=== PATIENT | male | born 1955 | race Caucasian/White ===

== ENCOUNTER → 2019-12-30 08:51 | Outpatient (CLI) | payer OTHER, SELFPAY ==
--- NOTE | ~2019-12-30 | XR_ITS ---
EXAMINATION: CT abdomen pelvis wo/w con, XR abdomen/kub 1V DATE: 12/30/2019 09:45 INDICATION: Gross hematuria TECHNIQUE: 1. Computed tomography (CT) of the abdomen and pelvis was performed without intravenous contrast. CT of the abdomen and pelvis was then performed with a total of 130 mL Omnipaque-350 intravenous contras t using a double-bolus technique for simultaneous opacification of the renal parenchyma and renal col lecting system. The dose-length product was 2255.56 mGy-cm. 2. AP view of the abdomen and pelvis was obtained on 2 radiographs. COMPARISON: None FINDINGS: CT UROGRAM: Mild discoid atelectasis at the lingula and right lower lobe. Heart size is normal. Small amount of g as in the nondependent right ventricle likely related to peripheral IV placement. No pericardial or p leural effusion. Liver, gallbladder, spleen, pancreas and bilateral adrenal glands are normal. Partia lly obstructing 7 x 4 x 3 mm stone at the right ureteropelvic junction with mild right hydronephrosis but with contrast passing beyond the stone with opacification of the more distal ureter. No other ur olithiasis. Bilateral low-attenuation nonenhancing renal cysts the largest on the right measuring 2.4 cm. No urothelial irregularities identified at the bilateral renal collecting systems or along the u reters. Bowels including the appendix are normal. Prostatomegaly. Bladder is normal. No free intraper itoneal gas or fluid. No pathologically enlarged abdominal or pelvic lymphadenopathy. Chronic appeari ng mild anterior wedging at T10-T12. Moderate thoracic and severe lumbar spondylosis. ABDOMEN RADIOGRAPH(S): The stone at the right ureteropelvic junction is clearly visible on the plain radiographs. No other u rolithiasis. Normal bowel gas pattern. IMPRESSION: 1. Partially obstructing 7 x 4 x 3 mm stone at the right ureteropelvic junction with mild right hydro nephrosis but with excreted contrast extending into the more distal right ureter and without delayed nephrogram. 2. Prostatomegaly. Reviewed, dictated and finalized at location B. IMPRESSION: 1. Partially obstructing 7 x 4 x 3 mm stone at the right ureteropelvic junction with mild right hydronephrosis but with excreted contrast extending into the m ore distal right ureter and without delayed nephrogram. 2. Prostatomegaly.
[2019-12-30 09:24] LABS: Estimated Glomerular Filt Rate > 60
== END ==
PROVIDERS: PCP Internal Medicine; Visit Provider Nurse Practitioner Adult Health
DX: R31.0 Gross hematuria (principal); N40.0 Benign prostatic hyperplasia without lower urinary tract symptoms; N20.1 Calculus of ureter
CPT/HCPCS: 74018; 74178; Q9967

== ENCOUNTER 2020-01-04 15:49 | Outpatient (CLI) | payer OTHER, SELFPAY ==
--- NOTE | 2020-01-04 16:11 | ECG_ITS ---
Measurements Intervals [place] Rate: 96 P: 45 [place]: 184 QRS: -21 QRSD: 122 T: 50 QT: 365 QTc: 462 Interpretive Statements SINUS RHYTHM INTRAVENTRICULAR CONDUCTION DELAY DELAYED PRECORDIAL R/S TRANSITION BORDERLINE ECG Electronically Signed On 01-04-2020 16:52:34 SIMULATION ANALYST by Artie Sharma D.O.
[2020-01-04 17:11] LABS: Prothrombin Time 13.7 Seconds (11.1-14.7)
[2020-01-04 17:12] LABS: Partial Thromboplastin Time 31.4 SECONDS (22.3-36.8)
== END 2020-01-04 15:50 | disposition home or self-care (01) ==
LOC: ANHLAB 15:51
PROVIDERS: PCP Internal Medicine; Visit Provider Urology
DX: R31.9 Hematuria, unspecified (principal); I10 Essential (primary) hypertension; Z01.818 Encounter for other preprocedural examination; I45.9 Conduction disorder, unspecified
CPT/HCPCS: 36415; 85610; 85730; 87086; 93005

== ENCOUNTER 2020-01-06 01:22 | Outpatient (CLI) | payer OTHER, SELFPAY ==
[2020-01-07 03:00] LABS: SARS-CoV-2 RNA PCR Negative
== END 2020-01-06 01:23 | disposition home or self-care (01) ==
LOC: ANHCOVIDDT 01:22
PROVIDERS: PCP Internal Medicine; Visit Provider Urology
DX: Z01.812 Encounter for preprocedural laboratory examination (principal); Z20.828 Contact with and (suspected) exposure to other viral communicable diseases
CPT/HCPCS: 87635; C9803; U0003

== ENCOUNTER 2020-01-08 01:52 | Day surgery (SDC) | payer OTHER, SELFPAY ==
[2020-01-04 14:56] VITALS: BMI 34.4
--- NOTE | 2020-01-07 12:41 | WPDANESEPPF ---
Anes - Initial Pre Proc Eval Procedure: Operation Date: 01/08/20 11:30 Proposed Procedures p Cystoscopy, Right Ureteral Extracorporeal Shock Wave Lithotripsy - Giovanny Pitts MD Date/Time: 01/07/20 12:41 Surgeon: Giovanny Pitts MD Pre Op Diagnosis: Gross Hematuria Patient Data Age: 64 Gender: M Height: 1.78 m Weight: 108.86 kg Allergies Allergy/AdvReac Type Severity Reaction Status Date / Time No Known Allergies Allergy Verified 01/04/20 14:57 Home Medications Medication Instructions Recorded Confirmed Type aripiprazole 5 mg tablet 5 mg PO DAILY 02/19/19 01/04/20 History donepezil 10 mg tablet 10 mg PO DAILY tablet 02/19/19 01/04/20 History multivitamin 1 tablet PO DAILY 02/19/19 01/04/20 History pregabalin 150 mg capsule 150 mg PO BID 02/19/19 01/04/20 History rosuvastatin 20 mg tablet 20 mg PO DAILY 02/19/19 01/04/20 History bupropion HCl 150 mg tablet,12 hr 150 mg PO BID tablet 09/11/19 01/04/20 History sustained-release amiloride 5 mg-hydrochlorothiazide 1 tablet PO DAILY #90 tablet 09/17/19 01/04/20 Rx 50 mg tablet tamsulosin 0.4 mg capsule 0.4 mg PO DAILY #90 cap 09/17/19 01/04/20 Rx enalapril maleate 20 mg tablet 20 mg PO DAILY #90 tablet 11/05/19 01/04/20 Rx sildenafil 25 mg tablet 25 mg PO DAILY PRN #30 tablet 12/28/19 01/04/20 Rx levothyroxine 25 mcg PO DAILY 01/04/20 01/04/20 History metformin 850 mg PO DAILY 01/04/20 01/04/20 History omeprazole 20 mg PO DAILY 01/04/20 01/04/20 History Patient hx anesthesia problems: none Family hx anesthesia problems: none PMFSH Past Medical History Medical History (Updated 01/07/20 @ 12:42 by Sal Pham MD) Arthritis Benign prostatic hyperplasia with nocturia Blood in the urine BPH (benign prostatic hyperplasia) Dementia, unspecified, without behavioral disturbance Dyslipidemia Erectile dysfunction Essential hypertension GERD without esophagitis Hypothyroidism (acquired) Neuropathy Obesity SHAYLA (obstructive sleep apnea) Recurrent major depressive disorder in partial remission Sleep apnea in adult Type 2 diabetes mellitus with diabetic polyneuropathy, without long-term current use of insulin Social History Social History (System 08/04/19 @ 12:59 by Sweta Madrid) Smoking packs per day: 2 Smoking cigarettes per day: 40.0 Years smoked: 20 Smoking pack-years: 40.00 Smoking status: Former smoker Tobacco type: cigarettes and e-cigarettes/vaping Additional smoking assessment comments: QUIT CIGARETTES- 5 YEARS AGO. CURRENT VAPOR CIGARETTE X5 YEARS Alcohol intake: never Spiritual care concerns: No Anes - Eval Final PreProcedure Day of Procedure 01/07/20 12:41 Patient weight: obese Heart: regular rate and rhythm Lungs: clear to auscultation and normal air movement Airway: Mallampati scale class II Neurological: alert and oriented Last oral intake: >/= 8 hours ASA classification: III Emergent: no Anesthetic plan: proceed Anesthesia type and monitoring: general LMA and ETT Informed Consent: The patient's anesthetic plan and its attendant risks and benefits were discussed with the patient/family/POA. Questions were solicited and answers provided to the satisfaction of the patient/family/POA.
[2020-01-08] VITALS (7 sets, daily range): BP systolic 112–131; BP diastolic 63–81; PULSE 64–81; RESP 13–20; TEMP 36–36.4; O2SAT 95–100
--- NOTE | ~2020-01-08 | XR_ITS ---
EXAMINATION: XR abdomen/kub 1V DATE: 01/08/2020 09:45 INDICATION: Lithotripsy TECHNIQUE: A supine view of the abdomen on 2 radiographs was obtained. COMPARISON: None. FINDINGS: No interval change in position of the previously noted 7 x 4 mm stone at the right ureteropelvic junc tion which continues to project lateral to the tip of the right L3 transverse process. No other evide nt urolithiasis. No dilated loops of bowel. Severe thoracolumbar spondylosis. IMPRESSION: 1. Unchanged 7 x 4 mm stone at the right ureteropelvic junction. Reviewed, dictated and finalized at location A. [employer]SPORTATION PLANNING
--- NOTE | 2020-01-08 06:32 | WPDHPUPDATE1 ---
History and Physical Update Update Date/Time: 01/08/20 06:32 History and Physical has been reviewed, including an updated exam of the patient. There are NO changes in the patient's condition. Risks, benefits, and alternatives have been discussed and questions answered. Patient agrees to proceed with procedure.
[2020-01-08] MEDS: LACTATED RINGERS 1,000 ML 30 ML IV CONT (10:10)
[2020-01-08 10:37] LABS: Anion Gap 10 mmol/L (8-16); Blood Urea Nitrogen 17 mg/dL (9-20); Calcium 9.1 mg/dL (8.4-10.2); Carbon Dioxide 27 mmol/L (22-30); Chloride 103 mmol/L (98-107); Estimated CRCL calculation 71 ml/min; Estimated Glomerular Filt Rate > 60; Glucose 98 mg/dL (75-110); Potassium 3.7 mmol/L (3.4-5.0); Sodium 140 mmol/L (137-145)
[2020-01-08] MEDS: ceFAZolin 2 GM/D5W 50 ML 2 GM/50 ML BAG IVPB (11:29)
--- NOTE | 2020-01-08 11:43 | PM.PROC ---
Procedure Note - Detailed Date of procedure: 01/08/20 Pre-op diagnosis: Gross Hematuria Post-op diagnosis: same Procedure performed: Cystoscopy, right ESWL Description of procedure: The patient was brought to the operative suite where he was placed in the supine position on the Dornier lithotripter table. Flexible cystoscopy was undertaken with a 16F flexible cystoscopy. There were no urethral strictures. The prostatic uretehral estimated lenght was 1.5cm. There was mild obstruction of the prostatic urethra with no median lobe enlargement. The bladder mucosa was normal and there was a single, orthotopic ureteral orifice bilaterally. The patient was then repositioned in the supine position with the focal point of the lithotriptor on a 6-7mm left UPJ calculus. A total of 2500 shocks were delivered at a power setting of 4. There appeared to be good fragmentation of the stone. The patient tolerated the procedure well and was taken to the recovery room in good condition. Anesthesia: GLMA Surgeon: Giovanny Pitts MD Estimated blood loss (mL): 0 Drains: No Packing: No Pathology: none sent Complications: No immediate complications Condition: stable Disposition: PACU
== END 2020-01-08 13:30 | disposition home or self-care (01) ==
PROVIDERS: Anesthesiology; PCP Internal Medicine; Visit Provider Urology
PROC: (CPT 50590; principal; 2020-01-08 11:30)
DX: R31.0 Gross hematuria (principal); N20.1 Calculus of ureter; I10 Essential (primary) hypertension; E11.42 Type 2 diabetes mellitus with diabetic polyneuropathy; G47.33 Obstructive sleep apnea (adult) (pediatric); F33.41 Major depressive disorder, recurrent, in partial remission; N40.1 Benign prostatic hyperplasia with lower urinary tract symptoms; R35.1 Nocturia; E78.5 Hyperlipidemia, unspecified; K21.9 Gastro-esophageal reflux disease without esophagitis; F03.90 Unspecified dementia, unspecified severity, without behavioral disturbance, psychotic disturbance, mood disturbance, and anxiety; E03.9 Hypothyroidism, unspecified; E66.9 Obesity, unspecified; Z68.34 Body mass index [BMI] 34.0-34.9, adult; F17.290 Nicotine dependence, other tobacco product, uncomplicated
CPT/HCPCS: 50590; 36415; 74018; 80048; A9270; J0690; J3010; J7030; J7120

== ENCOUNTER → 2020-01-18 13:09 | Outpatient (CLI) | payer OTHER, SELFPAY ==
--- NOTE | ~2020-01-18 | XR_ITS ---
EXAMINATION: XR abdomen/kub 1V DATE: 01/18/2020 13:38 INDICATION: Gross hematuria TECHNIQUE: A supine view of the abdomen on 2 radiographs was obtained. COMPARISON: 01/08/2020 FINDINGS: The stone previously seen in the proximal right ureter is no longer visualized. No other stone/stone fragments identified in the abdomen or pelvis. Normal bowel gas pattern. Bone island at the right fem oral neck. Severe lumbar spondylosis. IMPRESSION: 1. No evident urolithiasis. Reviewed, dictated and finalized at location H. WORDPRESS DEVELOPER IMPRESSION: 1. No evident urolithiasis.
== END ==
PROVIDERS: Visit Provider Nurse Practitioner Adult Health
DX: R31.0 Gross hematuria (principal)
CPT/HCPCS: 74018

== ENCOUNTER 2020-03-01 11:52 | Inpatient (IN) | payer OTHER, SELFPAY ==
[2020-03-01] VITALS (33 sets, daily range): BP systolic 98–145; BP diastolic 64–102; PULSE 91–152; RESP 0–33; TEMP 37.2–37.9; O2SAT 94–99; BMI 34.3
--- NOTE | ~2020-03-01 | US_ITS ---
EXAMINATION: US right upper quadrant DATE: 03/02/2020 08:00 INDICATION: Cholecystitis with right upper quadrant pain. TECHNIQUE: Multiple grayscale and Doppler ultrasound images of the abdomen were obtained. COMPARISON: None FINDINGS: Pancreas appears unremarkable but is suboptimally visualized. Liver has normal echogenicity and conto ur, with a smooth surface. No liver lesion identified. No intrahepatic biliary duct dilation suspecte d. Portal venous flow was seen in the hepatopetal, normal direction and has normal Doppler waveform. The gallbladder is dilated to 5.1 cm with mild diffuse wall thickening measuring up to 3 millimeter. No evident cholelithiasis. The common bile duct is at the upper limits of normal measuring 6 mm in ma ximal diameter. Sonographic Kelly sign was reported as positive by the rig supervisor. IMPRESSION: 1. Dilated gallbladder without evident cholelithiasis but with mild wall thickening and positive sono graphic Kelly's sign which along with the presence of pericholecystic inflammatory setting of prior CT is consistent with acute potentially acalculous cholecystitis. Reviewed, dictated and finalized at location A. AL HYGIENIST IMPRESSION: 1. Dilated gallbladder without evident cholelithiasis but with mild wall thicke tammi and positive sonographic Kelly's sign which along with the presence of pe richolecystic inflammatory setting of prior CT is consistent with acute potenti ally acalculous cholecystitis.
--- NOTE | ~2020-03-01 | XR_ITS ---
XR chest 1V portable DATE: 03/01/2020 12:54 INDICATION: Fever. Abdominal discomfort. TECHNIQUE: Portable AP chest on 03/01/2020 at 1254 hours COMPARISON: 09/16/2017 CT lung screening examinations FINDINGS: Normal heart size. Aortic tortuosity. No hilar or mediastinal enlargement. No pulmonary infiltrate or consolidation, pleural effusion or pulmonary mass or congestion or pneumot horax. IMPRESSION: No active cardiopulmonary disease Reviewed, dictated and finalized at location A. ENT'S LIBRARIAN
--- NOTE | ~2020-03-01 | NM_ITS ---
EXAMINATION: NM hepatobiliary w pharm DATE: 03/02/2020 16:20 INDICATION: Abdominal pain, possible cholecystitis COMPARISON: None. TECHNIQUE: 4.9 mCi Tc-99m mebrofenin (Choletec) was administered intravenously. Scintigraphic images of the abdomen were obtained for one hour. At the 1 hour time point, 2 mg of morphine were administer ed and imaging was continued for 30 minutes. FINDINGS: There is normal clearance of radiotracer from the blood pool. There is homogeneous tracer u ptake by the liver. Activity progresses to the bowel. No gallbladder activity is detected after one hour or after morphine administration. IMPRESSION: 1. Findings consistent with acute cholecystitis. Reviewed, dictated and finalized at location A. T PRESS OPERATOR
--- NOTE | ~2020-03-01 | CT_ITS ---
EXAMINATION: CT abdomen pelvis w con EXAM DATE: 03/01/2020 13:24 INDICATION: Upper abdominal pain for several days. TECHNIQUE: Spiral CT of the abdomen and pelvis was performed following intravenous injection of 100 m L Omnipaque 350. Axial, coronal and sagittal images were reviewed. The dose-length product (DLP) fo r this examination was 1124.14 mGy-cm. The exposure was tailored according to patient size (auto mA exposure control), and iterative reconstruction (ASIR) was used as additional dose reduction techniqu e. Comparison is made to prior examination from 12/30/2019. FINDINGS: Gallbladder is moderately distended and there is adjacent fat stranding. Appearance is susp icious for acute cholecystitis. No common bile duct dilation or calcified cholelithiasis. The liver, spleen, adrenal glands and pancreas are unremarkable. Portal and splenic veins are patent. Kidneys enhance symmetrically. There is no hydronephrosis. There is punctate right mid calyceal stone. No u reteral stones. There is moderate prostatomegaly. The bladder is unremarkable. There is no retroper itoneal or pelvic lymphadenopathy. There is mild scattered arteriosclerotic disease. The appendix is normal. There is large duodenal diverticulum. There is expected amount of colonic s tool. No free intraperitoneal gas. The heart is normal in size. There are no pericardial or pleu ral effusions. The lung bases are unremarkable. There are no osteoblastic or osteolytic lesions bill ntified. IMPRESSION: Probable acute cholecystitis. Other chronic findings. Reviewed, dictated and finalized at location B. TS STATISTICIAN
--- NOTE | ~2020-03-01 | XR_ITS ---
EXAMINATION: XR cholangiogram surg 1st inj DATE: 03/03/2020 10:15 INDICATION: Intraoperative evaluation during laparoscopic cholecystectomy TECHNIQUE: Multiple fluoroscopic images of the right upper quadrant were obtained during intraoperati ve cholangiography. A total of 121 fluoroscopic images were obtained. The amount of fluoroscopy time used during this procedure was 0.4 minutes. COMPARISON: None. FINDINGS: Cannulation of the cystic duct demonstrates filling of a normal appearing common bile duct which tapers smoothly distally with no intraluminal filling defects or stricture. Contrast extends i nto the duodenum and central intrahepatic biliary tree which also appears normal. IMPRESSION: 1. No filling defects or strictures within the common bile duct or contrast opacified central biliary tree. Reviewed, dictated and finalized at location A. TARY SCIENCE TEACHER IMPRESSION: 1. No filling defects or strictures within the common bile duct or contrast opa cified central biliary tree.
--- NOTE | 2020-03-01 12:27 | ED.ABDPAIN ---
HPI - Abdominal Pain General Chief Complaint: Abdominal Pain Stated Complaint: abd pain, constipation Time Seen by Provider: 03/01/20 12:19 Source: patient Mode of arrival: ambulatory Limitations: no limitations History of Present Illness HPI narrative: 64 years old white male presents with diffuse abdominal pain mainly upper part started yesterday. Constant, sharp, no radiation, denies any nausea, vomiting, diarrhea or constipation. Patient is running fever. Patient denies any coughing, sneezing, sore throat, headache, respiratory symptoms or exposure to anybody known to have COVID-19. Patient denies any history of abdominal surgery. Patient on aspirin once a day. History of diabetes, hypertension, hyperlipidemia, hypothyroidism Related Data Home Medications Medication Instructions Recorded Confirmed aripiprazole 5 mg tablet 5 mg PO DAILY 02/19/19 02/02/20 donepezil 10 mg tablet 10 mg PO DAILY tablet 02/19/19 02/02/20 multivitamin 1 tablet PO DAILY 02/19/19 02/02/20 bupropion HCl 150 mg tablet,12 hr 150 mg PO BID tablet 09/11/19 02/02/20 sustained-release levothyroxine 25 mcg PO DAILY 01/04/20 02/02/20 metformin 850 mg PO DAILY 01/04/20 02/02/20 omeprazole 20 mg PO DAILY 01/04/20 02/02/20 venlafaxine [Effexor XR] 150 mg PO DAILY 03/01/20 Allergies Allergy/AdvReac Type Severity Reaction Status Date / Time No Known Allergies Allergy Verified 01/04/20 14:57 Review of Systems Review of Systems: Narrative: CONSTITUTIONAL: Denies fever, chills, or sweats. EYES: Denies visual changes, redness, or discharge. ENT: Denies rhinorrhea, congestion, sore throat, or otalgia. CARDIOVASCULAR: Denies chest pain, palpitations, or edema. RESPIRATORY: Denies cough or dyspnea. GASTROINTESTINAL: Abdominal pain for the last 24 hours GENITOURINARY: Denies dysuria or hematuria. SKIN: Denies rash or itching. MUSCULOSKELETAL: Denies back pain, joint pain, or myalgia. NEUROLOGIC: Denies headache, numbness, or weakness. PSYCHIATRIC: Denies anxiety or depression. [facility] Past Medical History Medical History (Updated 03/01/20 @ 17:38 by Sherly Mclaughlin MD) Arthritis Benign prostatic hyperplasia with nocturia Blood in the urine BPH (benign prostatic hyperplasia) Dementia, unspecified, without behavioral disturbance Dyslipidemia Erectile dysfunction Essential hypertension GERD without esophagitis Hypothyroidism (acquired) Neuropathy Obesity SHAYLA (obstructive sleep apnea) Recurrent major depressive disorder in partial remission Sleep apnea in adult Type 2 diabetes mellitus with diabetic polyneuropathy, without long-term current use of insulin Surgical History Surgical History History of cystoscopy 01/08/20 cystoscopy with right ESWL Family History Family History Father Heart disease Gallbladder disease Social History Social History Social History: The patient lives at home with his , Lyly. He reports that his is his durable healthcare power of traffic law attorney. Smoking packs per day: 2 Smoking cigarettes per day: 40.0 Years smoked: 20 Smoking pack-years: 40.00 Smoking status: Former smoker Tobacco type: cigarettes and e-cigarettes/vaping Additional smoking assessment comments: QUIT CIGARETTES- 5 YEARS AGO. CURRENT VAPOR CIGARETTE X5 YEARS Alcohol intake: never Substance use: never Living arrangements: with family Gender identity (if verbalized by the patient): Male Sexual Orientation (if Verbalized by the Patient): Straight or Heterosexual Spiritual care concerns: No Exam Narrative: Exam Narrative: General appearance: Well-developed, well-nourished Skin: Normal color Head: Normocephalic, nontraumatic Eyes: Clear conjunctiva ENT: Oropharynx normal, ears normal, nose normal Neck: Supple, nontender Chest and respiratory: Airway
[2020-03-01] MEDS: SODIUM CHLORIDE 0.9% IV 1,000 ML 999 ML IV CONT ×2 (12:29→14:43)
[2020-03-01 12:31] LABS: Add Urine Microscopic? YES; Appearance Urine Cloudy (Clear); Bacteria Urine Trace /hpf; Bilirubin Urine 1+ (Negative); Blood Urine 1+ (Negative); Color Urine Amber (Yellow); Glucose Urine UA Negative (Negative); Ketones Urine 1+ mg/dL (Negative); Leukocyte Esterase Ur 2+ LEU/UL (Negative); Mucus Urine Heavy /lpf; Nitrate Urine Negative (Negative); Protein Urine 2+ mg/dL (Negative); Squamous Epithelial Cell Urine Rare /hpf (Few); WBC Urine 16-20 /hpf
[2020-03-01] MEDS: ONDANSETRON INJ 4 MG/2 ML VIAL IV PUSH (12:34)
[2020-03-01] MEDS: MORPHINE SULFATE (*CRX) 4 MG/ML INJ IV PUSH (12:35)
[2020-03-01 12:58] LABS: Hematocrit 46.6 % (42.0-52.0); Hemoglobin 15.9 g/dL (14.0-18.0); Mean Corpuscular HGB Conc 34.1 g/dl (32-36); Mean Corpuscular Hemoglobin 29.7 pg (26-34); Mean Corpuscular Volume 87.1 fl (80-100); Mean Platelet Volume 9.8 fl (7.4-10.4); Platelet Count Result 336 k/mm3 (150-375); Red Blood Count 5.35 M/mm3 (4.6-6.20)
[2020-03-01 13:10] LABS: Alanine Aminotransferase 25 U/L (4-50); Albumin Level 4.2 g/dL (3.5-5.1); Alkaline Phosphatase 68 U/L (38-126); Anion Gap 12 mmol/L (8-16); Aspartate Amino Transferase 26 U/L (17-59); Bilirubin,Total 0.9 mg/dL (0.2-1.3); Blood Urea Nitrogen 14 mg/dL (9-20); Carbon Dioxide 24 mmol/L (22-30); Chloride 97 mmol/L (98-107); Estimated CRCL calculation 92 ml/min; Estimated Glomerular Filt Rate > 60; Glucose 161 mg/dL (75-110); Lipase 17 U/L (23-300); Potassium 3.4 mmol/L (3.4-5.0); Sodium 133 mmol/L (137-145)
[2020-03-01 13:17] LABS: Band Neutrophils Percent 1 % (0-6); Lymphocytes Absolute Manual 1.62 K/mm3 (1.1-4.5); Monocytes Absolute Manual 0.72 K/mm3 (0.1-0.90); Monocytes Percent Manual 4 % (3-9); Neutrophils Absolute Manual 15.66 K/mm3 (1.3-6.7); Neutrophils Percent Manual 86 % (46-73); Total Cells Counted 100
[2020-03-01 13:18] LABS: Platelet Estimate Adequate (Adequate)
--- NOTE | 2020-03-01 14:25 | PC.NURSE ---
ERP aware about Pt. hr being tachy. ERP ordered another fluid bolus via verbal order readback. Pt. denies any chest pain or shortness of breath.
--- NOTE | 2020-03-01 14:54 | PM.CNGS ---
Assessment and Plan Assessment and plan (1) Acute cholecystitis: Code(s): K81.0 - Acute cholecystitis Status: Acute Assessment and Plan: CT abd/pelvis showed gallbladder distention with adjacent fat stranding, concerning for acute cholecystitis, but there is no evidence of cholelithiasis. He also presented with associated leukocytosis, fever, and tachycardia. LFTs and lipase are normal. When seen in the ER, he is still having a significant amount of abdominal pain and has not eaten for 2 days. I discussed the patient's case and plan of care with Dr. Galindo. We would recommend starting broad-spectrum IV antibiotics, IV fluids, analgesics, and antiemetics. We will also get a right upper quadrant abdominal ultrasound to further evaluate for gallstones and tentatively plan on proceeding with a laparoscopic cholecystectomy, possible open, by Dr. Galindo tomorrow. The patient is at an increased risk for surgery due to his multiple co-morbidities. I discussed the pathophysiology of gallbladder disease with the patient and the description of the procedure, risks, benefits, indications, and expected outcomes and recovery. All questions were answered. Thank you for allowing us to see the patient in consultation and we will continue to follow along with you. (2) Sepsis: Code(s): A41.9 - Sepsis, unspecified organism Status: Acute Assessment and Plan: Sepsis criteria met with leukocytosis (WBC 18,000), tachycardia, and fever in the presence of known infection. Cholecystitis is likely the source. Urine may another possible source, but seems less likely. Will await the Hospitalist's evaluation regarding his abnormal urinalysis. I ordered a lactic acid and blood cultures. Continue broad-spectrum IV antibiotics and IV fluids. Monitor labs. Management per Hospitalist. (3) Abnormal urinalysis: Code(s): R82.90 - Unspecified abnormal findings in urine Status: Acute Assessment and Plan: Concern for UTI? Less likely source of leukocytosis. Urine culture pending. Continue abx and management per Hospitalist. (4) Type 2 diabetes mellitus with diabetic polyneuropathy, without long-term current use of insulin: Code(s): E11.42 - Type 2 diabetes mellitus with diabetic polyneuropathy Status: Acute Assessment and Plan: Hgb A1C in September was 5.5. Management per Hospitalist. (5) Essential hypertension: Code(s): I10 - Essential (primary) hypertension Status: Acute (6) SHAYLA (obstructive sleep apnea): Code(s): G47.33 - Obstructive sleep apnea (adult) (pediatric) Status: Acute Assessment and Plan: Compliant with CPAP. (7) BPH (benign prostatic hyperplasia): Qualifiers: Lower urinary tract symptom presence: symptoms absent Qualified Code(s): N40.0 - Benign prostatic hyperplasia without lower urinary tract symptoms Code(s): N40.0 - Benign prostatic hyperplasia without lower urinary tract symptoms Status: Acute (8) Dementia, unspecified, without behavioral disturbance: Code(s): F03.90 - Unspecified dementia without behavioral disturbance Status: Acute (9) Hypothyroidism (acquired): Code(s): E03.9 - Hypothyroidism, unspecified Status: Acute (10) Recurrent major depressive disorder in partial remission: Code(s): F33.41 - Major depressive disorder, recurrent, in partial remission Status: Acute (11) Obesity: Code(s): E66.9 - Obesity, unspecified Status: Acute History of Present Illness Consult details Consult date: 03/01/20 Reason for consult: other (Possible acute cholecystitis) Requesting physician: Sherly Mclaughlin MD Narrative: This is a 64-year-old male with a history of type 2 diabetes mellitus, SHAYLA, hypertension, hyperlipidemia, and hypothyroidism, who presented to the emergency department today with complaints of epigastric abdominal pain and fever. The patient reports waking up with abdo
[2020-03-01 17:24] LABS: Lactic Acid Reflex 1.6 mmol/L (0.7-2.1)
[2020-03-01] MEDS: SODIUM CHLORIDE 0.9% IV 1,000 ML 125 ML IV CONT (17:25)
--- NOTE | 2020-03-01 18:04 | PC.NURSE ---
This patient, Cecilio Cool, was admitted to Medical Room 341-01. Patient/family oriented to hospital policies and general routines including ID bracelet, bed and alarms, visiting hours, pain management, procedures, bathroom and other care routines, personal items, smoking policy, room service/diet, and visiting hours. Information on how to activate the Rapid Response Team has been discussed. Patient/Family are encouraged to report perceived risks to care and to ask questions if they do not understand what they are told or what they should do.
--- NOTE | 2020-03-01 18:38 | ECG_ITS ---
Measurements Intervals [place] Rate: 100 P: 53 IA: 176 QRS: 27 QRSD: 118 T: 45 QT: 330 QTc: 427 Interpretive Statements SINUS TACHYCARDIA INTRAVENTRICULAR CONDUCTION DELAY DELAYED PRECORDIAL R/S TRANSITION INFERIOR INFARCT, AGE INDETERMINATE ABNORMAL ECG Electronically Signed On 03-02-2020 14:07:47 CAN CLOSING MACHINE TENDER by Artie Sharma D.O.
--- NOTE | 2020-03-01 19:30 | PM.IMHP ---
H&P: HPI History of Present Illness Date/Time: 03/01/20 19:30 Chief Complaint: Abdominal pain. Narrative: Cecilio Cool is a 64-year-old male with GERD, hypertension, dyslipidemia, hypothyroidism, type 2 diabetes mellitus,Depression, anxiety, and memory loss who presented to the emergency department earlier today with complaints of abdominal pain. He reportedly awoke from sleep with epigastric pain that he has a difficult time describing aside from calling it pain. It does not radiate and he gives no significant aggravating or alleviating factors. Associated symptoms include nausea and decreased appetite. This morning he had chills and a fever of 100.5? and thus he was brought in for evaluation. He was found to have findings suggestive of acute cholecystitis on imaging is being admitted in this setting. He denies prior history of gallbladder disease has no history of cholelithiasis. No vomiting or diarrhea. Denies dysuria. No cold or flu symptoms. Review of Systems Review of Systems: Narrative: Twelve systems were reviewed with pertinent positives and negatives as per HPI. No sinus congestion, rhinorrhea, otalgia, or odynophagia. No cough or shortness of breath. No exposure to those positive for COVID-19. He is on metformin and does check his glucose regularly, assuring me that ?they always look pretty good.? Except as documented, all other systems were reviewed and are negative. [facility] Past Medical History Medical History (Updated 03/01/20 @ 23:53 by Lucy Calderon PA-C) Anxiety Arthritis Benign prostatic hyperplasia with nocturia Dementia, unspecified, without behavioral disturbance Depression Dyslipidemia Erectile dysfunction Essential hypertension GERD without esophagitis History of kidney stones Hypothyroidism Neuropathy Obstructive sleep apnea He does not always use his CPAP. Type 2 diabetes mellitus with diabetic polyneuropathy, without long-term current use of insulin Hemoglobin A1c was 5.5% in September 2019. Surgical History Surgical History (Updated 03/01/20 @ 23:49 by Lucy Calderon PA-C) History of cystoscopy (~01/08/20) Cystoscopy with right ESWL. Family History Family History Father Heart disease Gallbladder disease Social History Social History (Updated 03/01/20 @ 23:50 by Lucy Calderon PA-C) Social History: the patient lives in [place] with his . He smoked 2 packs of cigarettes a day for 40 years and quit about 5 years ago. He now vapes. He denies alcohol and illicit substance abuse. He designates Lyly as his surrogate decision maker and he wishes to be a full code. Smoking packs per day: 2 Smoking cigarettes per day: 40.0 Years smoked: 20 Smoking pack-years: 40.00 Smoking status: Former smoker Tobacco type: cigarettes and e-cigarettes/vaping Additional smoking assessment comments: QUIT CIGARETTES- 5 YEARS AGO. CURRENT VAPOR CIGARETTE X5 YEARS Alcohol intake: former Substance use: never Living arrangements: with family Gender identity (if verbalized by the patient): Male Sexual Orientation (if Verbalized by the Patient): Straight or Heterosexual Spiritual care concerns: No Meds Home Medications and Allergies Home Medications Medication Instructions Recorded Confirmed Type aripiprazole 5 mg tablet 5 mg PO DAILY 02/19/19 03/01/20 History donepezil 10 mg tablet 10 mg PO DAILY tablet 02/19/19 03/01/20 History multivitamin 1 tablet PO DAILY 02/19/19 03/01/20 History bupropion HCl 150 mg tablet,12 hr 300 mg PO DAILY tablet 09/11/19 03/01/20 History sustained-release amiloride 5 mg-hydrochlorothiazide 1 tablet PO DAILY #90 tablet 09/17/19 03/01/20 Rx 50 mg tablet enalapril maleate 20 mg tablet 20 mg PO DAILY #90 tablet 11/05/19 03/01/20 Rx sildenafil 25 mg tablet 25 mg PO DAILY PRN #30 tablet 12/28/19 03/01/20 Rx levothyroxine 25 mcg PO DAILY 01/04/20 03/01/20 History
[2020-03-01] MEDS: SODIUM CHLORIDE 0.9% IV 500 ML 999 ML IV CONT (20:41)
[2020-03-01 21:27] LABS: Glucose Point of Care 109 (65-105)
[2020-03-02] VITALS (7 sets, daily range): BP systolic 111–154; BP diastolic 67–77; PULSE 76–108; RESP 17–20; TEMP 36.4–37.3; O2SAT 94–98
[2020-03-02 00:59] LABS: Alanine Aminotransferase 28 U/L (4-50); Albumin Level 3.3 g/dL (3.5-5.1); Alkaline Phosphatase 55 U/L (38-126); Anion Gap 7 mmol/L (8-16); Aspartate Amino Transferase 32 U/L (17-59); Bilirubin,Total 1.2 mg/dL (0.2-1.3); Blood Urea Nitrogen 15 mg/dL (9-20); Calcium 8.3 mg/dL (8.4-10.2); Carbon Dioxide 26 mmol/L (22-30); Chloride 103 mmol/L (98-107); Estimated CRCL calculation 83 ml/min; Estimated Glomerular Filt Rate > 60; Glucose 121 mg/dL (75-110); Potassium 3.6 mmol/L (3.4-5.0); Sodium 136 mmol/L (137-145)
[2020-03-02] MEDS: MORPHINE SULFATE (*CRX) 4 MG/ML INJ 2 MG IV PUSH ×3 (02:27→15:46)
[2020-03-02] MEDS: SODIUM CHLORIDE 0.9% IV 1,000 ML 125 ML IV CONT ×3 (02:32→21:58)
[2020-03-02 05:56] LABS: Basophils Percent Auto 0.2 % (0.2-1.2); Hematocrit 41.7 % (42.0-52.0); Immature Granulocyte Absolute 0.42 K/mm3 (0.00-0.031); Immature Granulocyte Percent A 2.2 % (0-0.5); Lymphocytes Absolute Auto 0.95 K/mm3 (0.9-3.2); Mean Corpuscular HGB Conc 33.6 g/dl (32-36); Mean Corpuscular Hemoglobin 29.4 pg (26-34); Mean Corpuscular Volume 87.4 fl (80-100); Monocytes Percent Auto 5.5 % (2.6-8.5); Neutrophils Absolute Auto 16.4 K/mm3 (1.3-6.7); Neutrophils Percent Auto 87.1 % (45.5-73.1); Platelet Count Result 300 k/mm3 (150-375); Red Blood Count 4.77 M/mm3 (4.6-6.20); White Blood Count 18.9 K/mm3 (4.5-10.0)
[2020-03-02] MEDS: LEVOTHYROXINE SODIUM 25 MCG TABLET PO (05:59)
[2020-03-02 06:08] LABS: Hemoglobin A1C 5.3 % (<5.7)
[2020-03-02 06:10] LABS: Alanine Aminotransferase 31 U/L (4-50); Albumin Level 3.4 g/dL (3.5-5.1); Alkaline Phosphatase 62 U/L (38-126); Anion Gap 8 mmol/L (8-16); Aspartate Amino Transferase 36 U/L (17-59); Bilirubin,Total 1.1 mg/dL (0.2-1.3); Blood Urea Nitrogen 15 mg/dL (9-20); Calcium 8.5 mg/dL (8.4-10.2); Carbon Dioxide 25 mmol/L (22-30); Chloride 103 mmol/L (98-107); Estimated CRCL calculation 83 ml/min; Estimated Glomerular Filt Rate > 60; Glucose 115 mg/dL (75-110); Magnesium 1.4 mg/dL (1.6-2.3); Potassium 3.5 mmol/L (3.4-5.0); Sodium 136 mmol/L (137-145)
--- NOTE | 2020-03-02 07:33 | ECG_ITS ---
Measurements Intervals [place] Rate: 73 P: 41 OK: 185 QRS: 37 QRSD: 118 T: 34 QT: 373 QTc: 414 Interpretive Statements SINUS RHYTHM INFERIOR INFARCT, AGE INDETERMINATE ATYPICAL ECG Electronically Signed On 03-02-2020 14:18:48 DICE TABLE OPERATOR by Artie Sharma D.O.
--- NOTE | 2020-03-02 07:36 | PC.NURSE ---
Patient to ultrasound via stretcher.
--- NOTE | 2020-03-02 08:00 | PC.NURSE ---
Patient returned from ultrasound via stretcher.
[2020-03-02] MEDS: buPROPion HCL XL (24 HR) 150 MG TABCR 300 MG PO (08:18)
[2020-03-02] MEDS: DONEPEZIL HCL 10 MG TABLET PO (08:18)
[2020-03-02] MEDS: VENLAFAXINE HCL XR 75 MG CAP.ER.24H 150 MG PO (08:18)
[2020-03-02] MEDS: ARIPiprazole 5 MG TABLET PO (08:18)
[2020-03-02] MEDS: MAGNESIUM SULFATE 3GM/D5W100ML 3 GM/100 ML BAG IVPB (08:19)
--- NOTE | 2020-03-02 08:23 | WPDANESEPPF ---
Anes - Initial Pre Proc Eval Procedure: Operation Date: 03/02/20 15:30 Proposed Procedures p Laparoscopic Cholecystectomy,Possible Intraoperative Cholangiograms - Dennis Galindo MD Date/Time: 03/02/20 08:23 Pre Op Diagnosis: Acute cholecystitis Patient Data Age: 64 Gender: M Height: 1.78 m Weight: 108.5 kg Last Vital Signs Temp 36.6 C 03/02/20 05:58 Pulse 94 03/02/20 05:58 Resp 17 03/02/20 05:58 BP 133/77 03/02/20 05:58 Pulse Ox 94 03/02/20 05:58 Allergies Allergy/AdvReac Type Severity Reaction Status Date / Time No Known Allergies Allergy Verified 03/01/20 22:18 Home Medications Medication Instructions Recorded Confirmed Type aripiprazole 5 mg tablet 5 mg PO DAILY 02/19/19 03/01/20 History donepezil 10 mg tablet 10 mg PO DAILY tablet 02/19/19 03/01/20 History multivitamin 1 tablet PO DAILY 02/19/19 03/01/20 History bupropion HCl 150 mg tablet,12 hr 300 mg PO DAILY tablet 09/11/19 03/01/20 History sustained-release amiloride 5 mg-hydrochlorothiazide 1 tablet PO DAILY #90 tablet 09/17/19 03/01/20 Rx 50 mg tablet enalapril maleate 20 mg tablet 20 mg PO DAILY #90 tablet 11/05/19 03/01/20 Rx sildenafil 25 mg tablet 25 mg PO DAILY PRN #30 tablet 12/28/19 03/01/20 Rx levothyroxine 25 mcg PO DAILY 01/04/20 03/01/20 History metformin 850 mg PO DAILY 01/04/20 03/01/20 History omeprazole 20 mg PO DAILY 01/04/20 03/01/20 History aspirin [Adult Aspirin] 81 mg PO DAILY 03/01/20 03/01/20 History venlafaxine [Effexor XR] 150 mg PO DAILY 03/01/20 03/01/20 History Laboratory Tests 03/01/20 03/01/20 03/01/20 12:21 12:49 12:50 WBC 18.0 K/mm3 H K/mm3 (4.5-10.0) RBC 5.35 M/mm3 M/mm3 (4.6-6.20) Hgb 15.9 g/dL g/dL (14.0-18.0) Hct 46.6 % % (42.0-52.0) MCV 87.1 fl fl (80-100) MCH 29.7 pg pg (26-34) MCHC 34.1 g/dl g/dl (32-36) RDW 13.0 % % (11.5-14.5) Plt Count 336 k/mm3 k/mm3 (150-375) MPV 9.8 fl fl (7.4-10.4) Immature Gran % (Auto) Not Reportable Neut % (Auto) Not Reportable Lymph % (Auto) Not Reportable Wells % (Auto) Not Reportable Eos % (Auto) Not Reportable Baso % (Auto) Not Reportable Lymph # (Auto) Not Reportable [place] # (Auto) Not Reportable Eos # (Auto) Not Reportable Baso # (Auto) Not Reportable Abs Immat Gran (auto) Not Reportable Absolute Neuts (auto) Not Reportable Absolute Nucleated RBC Not Reportable Total Counted 100 Neutrophils % (Manual) 86 % H % (46-73) Band Neutrophils % 1 % % (0-6) Lymphocytes % (Manual) 9.0 % L % (18-44) Monocytes % (Manual) 4 % % (3-9) Nucleated RBC % Not Reportable Abs Neuts (Manual) 15.66 K/mm3 H K/mm3 (1.3-6.7) Abs Lymphs (Manual) 1.62 K/mm3 K/mm3 (1.1-4.5) Abs Monocytes (Manual) 0.72 K/mm3 K/mm3 (0.1-0.90) Platelet Estimate Adequate (Adequate) Sodium 133 mmol/L L mmol/L (137-145) Potassium 3.4 mmol/L mmol/L (3.4-5.0) Chloride 97 mmol/L L mmol/L (98-107) Carbon Dioxide 24 mmol/L mmol/L (22-30) Anion Gap 12 mmol/L mmol/L (8-16) BUN 14 mg/dL mg/dL (9-20) Creatinine 0.90 mg/dL mg/dL (0.7-1.3) Estim Creat Clear Calc 92 ml/min ml/min Estimated GFR > 60 (59 - ) Glucose 161 mg/dL H mg/dL (75-110) POC Capillary Glucose Hemoglobin A1c Lactic Acid Calcium 9.0 mg/dL mg/dL (8.4-10.2) Magnesium Total Bilirubin 0.9 mg/dL mg/dL (0.2-1.3) AST 26 U/L U/L (17-59) ALT 25 U/L U/L (4-50) Alkaline Phosphatase 68 U/L U/L (38-126) Total Protein 8.0 g/dL g/dL
[2020-03-02] MEDS: MAGNESIUM SULF 2 GM/WATER 50ML 2 GM/50 ML BAG IVPB (09:28)
--- NOTE | 2020-03-02 09:43 | PM.PNGS ---
Progress Note: A&P Assessment and Plan (1) Acute cholecystitis: Code(s): K81.0 - Acute cholecystitis Status: Acute Assessment and Plan: CT abd/pelvis showed gallbladder distention with adjacent fat stranding, concerning for acute cholecystitis, but there is no evidence of cholelithiasis. He also presented with associated leukocytosis, fever, and tachycardia. LFTs and lipase are normal. Ultrasound RUQ this morning showed dilated gallbladder without evident cholelithiasis but with mild wall thickening and positive sonographic Kelly's sign which along with the presence of pericholecystic inflammatory setting of prior CT is consistent with acute potentially acalculous cholecystitis. WBC up to 18,900 today and he did have a low grade fever this morning. Patient still having a significant amount of abdominal pain. Since there is still no gallstones seen on ultrasound, we will get a STAT HIDA scan today with pharmacology to assess the gallbladder function. If this is acute acalculous cholecystitis, we will likely try to add the patient onto the surgery schedule later today. Plan pending HIDA results. (2) Sepsis: Code(s): A41.9 - Sepsis, unspecified organism Status: Acute Assessment and Plan: Sepsis criteria met with leukocytosis, tachycardia, and fever in the presence of known infection. Cholecystitis is likely the source. Lactic acid normal. Blood cultures pending. Continue broad-spectrum IV antibiotics and IV fluids. (3) Abnormal urinalysis: Code(s): R82.90 - Unspecified abnormal findings in urine Status: Acute Assessment and Plan: [place] to be contaminate. Urine culture pending. IV Zosyn would cover for possible pathogens. Management per Hospitalist. (4) Type 2 diabetes mellitus with diabetic polyneuropathy, without long-term current use of insulin: Code(s): E11.42 - Type 2 diabetes mellitus with diabetic polyneuropathy Status: Acute Assessment and Plan: Management per Hospitalist. (5) Essential hypertension: Code(s): I10 - Essential (primary) hypertension Status: Acute (6) SHAYLA (obstructive sleep apnea): Code(s): G47.33 - Obstructive sleep apnea (adult) (pediatric) Status: Acute (7) Obesity: Code(s): E66.9 - Obesity, unspecified Status: Acute Additional Plan Discussed the patient's plan of care with Dr. Galindo. Subjective Subjective Date/Time Seen: 03/02/20 09:43 Patient reports: still having pain Interval history: Patient reports feeling miserable this morning due to the abdominal pain. Morphine is helping with the pain some per the patient. Still reports epigastric and central upper abdominal pain. No other complaints. Fever of 100.2 F this morning. Review of Systems Review of Systems: All systems reviewed & are unremarkable except as noted in HPI and below Exam Const: General: no acute distress, alert, awake and uncomfortable Orientation/consciousness: patient oriented x3 Resp: Effort & Inspection: normal respiratory effort Auscultation: clear to auscultation bilaterally Cardio: Rate: regular rate Rhythm: regular rhythm GI: Inspection: non-distended and obesity (protuberant) GI Palp: Yes Soft to palpation, Yes Tenderness to palpation present (GI) (diffusely tender, worse in epigastric/RUQ), Yes Guarding due to palpation present (GI) and No Rebound tenderness present Auscultation: normal bowel sounds Rectal Exam: deferred Skin: General skin exam: normal color Rashes: no rashes Neuro: General: patient oriented x3, moves all extremities and no focal motor deficits Cranial nerves: Yes CN's II-XII intact bilaterally Speech: normal speech and No Abnormal speech present Extrem: General: normal to inspection, no clubbing, cyanosis or edema and no calf tenderness Psych: Mental Status: mental status grossly normal Attitude: cooperative Thought process: Normal thought process present Thought content: Yes Norm
--- NOTE | 2020-03-02 10:26 | P.PNIM_ITS ---
Progress Note: A&P Assessment and Plan (1) Sepsis: Code(s): A41.9 - Sepsis, unspecified organism Status: Acute Assessment and Plan: SIRS criteria met with fever, tachycardia, and leukocytosis in the setting of presumed acute cholecystitis. Lactic acid is normal Blood cultures were obtained and are pending. * Continue IV zosyn * Monitor hemodynamics and urine output * Await final blood cultures (2) Acute cholecystitis: Code(s): K81.0 - Acute cholecystitis Status: Acute Assessment and Plan: CT abd/pelvis demonstrated gallbladder distention with adjacent fat stranding concerning for acute cholecystitis with associated fever, tachycardia and leukoc ytosis. LFTs and lipase are normal. * General surgery is following and input is greatly appreciated * Patient is NPO for now * HIDA scan ordered and pending for this afternoon * Continue IV zosyn (initiated 03/01/20) * Continue IV fluids (3) ST segment changes on electrocardiogram: Code(s): R94.31 - Abnormal electrocardiogram [ECG] [EKG] Status: Acute Assessment and Plan: EKG ordered for pre-op evaluation shows ST-T change in leads II, III, and aVF compared to EKG 01/04/20. He has several risk factors for CAD including T2DM, HTN, and HLD. He has no complaints of chest pain at rest or with activity. He notes that he did have a stress test 5-10 years ago. His functional status is moderate (4-7 METs). * I will ask cardiology to see him for pre-operative risk assessment as cholecystectomy is anticipated for tomorrow (4) Type 2 diabetes mellitus with diabetic polyneuropathy, without long-term current use of insulin: Code(s): E11.42 - Type 2 diabetes mellitus with diabetic polyneuropathy Status: Chronic Assessment and Plan: A1c 03/02/20 is 5.3. Blood sugars are well-controlled. * Continue ACHS glucose monitoring, sliding scale insulin, and hypoglycemia protocol * Metformin is on hold while inpatient (5) Essential hypertension: Code(s): I10 - Essential (primary) hypertension Status: Chronic Assessment and Plan: Blood pressures are reasonable. Most recent BP is 154/75, likely slightly elevated due to pain. * Amiloride-HCTZ and enalapril are currently held, resume when clinically appropriate * Continue to monitor (6) Dyslipidemia: Code(s): E78.5 - Hyperlipidemia, unspecified Status: Acute Assessment and Plan: LFTs are normal. The patient is not currently on a statin. * Check lipid panel (7) Dementia, unspecified, without behavioral disturbance: Code(s): F03.90 - Unspecified dementia without behavioral disturbance Status: Chronic Assessment and Plan: Chronic. Patient is at baseline, A&Ox4. * Continue donepezil (8) Abnormal urinalysis: Code(s): R82.90 - Unspecified abnormal findings in urine Status: Acute Assessment and Plan: Urinalysis is suspicious for UTI although he is asymptomatic. * He is on empiric zosyn for cholecystitis * Await urine culture which is pending (9) Hypothyroidism (acquired): Code(s): E03.9 - Hypothyroidism, unspecified Status: Acute Assessment and Plan: Will check TSH. * Continue levothyroxine Subjective Date/time seen: 03/02/20 10:26 Mr. Cool is a 64 y.o. male with PMH significant for hypertension, hypothyroidism, T2D
--- NOTE | 2020-03-02 10:26 | PM.IMPN ---
Progress Note: A&P Assessment and Plan (1) Sepsis: Code(s): A41.9 - Sepsis, unspecified organism Status: Acute Assessment and Plan: SIRS criteria met with fever, tachycardia, and leukocytosis in the setting of presumed acute cholecystitis. Lactic acid is normal Blood cultures were obtained and are pending. Continue IV zosyn Monitor hemodynamics and urine output Await final blood cultures (2) Acute cholecystitis: Code(s): K81.0 - Acute cholecystitis Status: Acute Assessment and Plan: CT abd/pelvis demonstrated gallbladder distention with adjacent fat stranding concerning for acute cholecystitis with associated fever, tachycardia and leukocytosis. LFTs and lipase are normal. General surgery is following and input is greatly appreciated Patient is NPO for now HIDA scan ordered and pending for this afternoon Continue IV zosyn (initiated 03/01/20) Continue IV fluids (3) ST segment changes on electrocardiogram: Code(s): R94.31 - Abnormal electrocardiogram [ECG] [EKG] Status: Acute Assessment and Plan: EKG ordered for pre-op evaluation shows ST-T change in leads II, III, and aVF compared to EKG 01/04/20. He has several risk factors for CAD including T2DM, HTN, and HLD. He has no complaints of chest pain at rest or with activity. He notes that he did have a stress test 5-10 years ago. His functional status is moderate (4-7 METs). I will ask cardiology to see him for pre-operative risk assessment as cholecystectomy is anticipated for tomorrow (4) Type 2 diabetes mellitus with diabetic polyneuropathy, without long-term current use of insulin: Code(s): E11.42 - Type 2 diabetes mellitus with diabetic polyneuropathy Status: Chronic Assessment and Plan: A1c 03/02/20 is 5.3. Blood sugars are well-controlled. Continue ACHS glucose monitoring, sliding scale insulin, and hypoglycemia protocol Metformin is on hold while inpatient (5) Essential hypertension: Code(s): I10 - Essential (primary) hypertension Status: Chronic Assessment and Plan: Blood pressures are reasonable. Most recent BP is 154/75, likely slightly elevated due to pain. Amiloride-HCTZ and enalapril are currently held, resume when clinically appropriate Continue to monitor (6) Dyslipidemia: Code(s): E78.5 - Hyperlipidemia, unspecified Status: Acute Assessment and Plan: LFTs are normal. The patient is not currently on a statin. Check lipid panel (7) Dementia, unspecified, without behavioral disturbance: Code(s): F03.90 - Unspecified dementia without behavioral disturbance Status: Chronic Assessment and Plan: Chronic. Patient is at baseline, A&Ox4. Continue donepezil (8) Abnormal urinalysis: Code(s): R82.90 - Unspecified abnormal findings in urine Status: Acute Assessment and Plan: Urinalysis is suspicious for UTI although he is asymptomatic. He is on empiric zosyn for cholecystitis Await urine culture which is pending (9) Hypothyroidism (acquired): Code(s): E03.9 - Hypothyroidism, unspecified Status: Acute Assessment and Plan: Will check TSH. Continue levothyroxine Subjective Date/time seen: 03/02/20 10:26 Mr. Cool is a 64 y.o. male with PMH significant for hypertension, hypothyroidism, T2DM, anxiety, hyperlipidemia, and dementia who is seen in follow-up for acute cholecystitis. He continues to have significant upper central abdominal discomfort. He currently rates the pain at 9/10. He is not having any associated nausea or vomiting. He has no shortness of breath or chest pain. He reports mild lightheadedness after he had morphine but has no other concerns at this time. He has no headaches or dizziness. He is not having any subjective fever or chills at this time but does note fever overnight. Review o
[2020-03-02 12:41] LABS: Glucose Point of Care 106 (65-105)
--- NOTE | 2020-03-02 12:59 | PM.CNCAR ---
Assessment and Plan Additional Plan 64-year-old man with: Significant abdominal pain felt to have a calculus cholecystitis and potentially is going to require surgical treatment. Electrocardiographic abnormalities which are not of any great significance he has small nondiagnostic inferior Q-waves which I would not conclude our indicative of a previous infarction. He has been seeing a manager requirements elsewhere despite his lack of a cardiac diagnosis and there noninvasive workup has been unrevealing. I believe he can proceed to surgery if that is what is decided upon without any reason to think he is at inordinately or increased cardiac risk. Brandon Lai MD [facility] History of Present Illness History of Present Illness Consult date/time: 03/02/20 12:59 Consult reason: pre-op evaluation Reason For Visit: Acute cholecystitis Narrative: This is a 64-year-old man that I am seeing this afternoon at the hospitalist to provide preoperative cardiac risk assessment prior to noncardiac surgery. Patient has no history of cardiac problems of any kind according to the chart and according to the patient. He follows with a manager requirements elsewhere in the [facility] but according to the notes in the chart he is not really known to have any specific cardiac pathology. They have done couple of different stress tests on him, echo cardiograms with favorable results. According to their notes he does have a history of some mild peripheral vascular disease in the lower extremities. This has been asymptomatic. He entered the hospital here yesterday reporting significant abdominal pain his evaluation appears to show evidence of a calculus cholecystitis and surgery has been consulted to see him. He says he is going to have a HIDA scan of his gallbladder this afternoon and then there will be some decision made about timing of operation. Right now he reports to be in moderate distress with 7 to 8/10 abdominal pain for which he is receiving analgesics. He denies any symptoms of chest pain pressure or heaviness he denies any palpitations syncope orthopnea PND or edema. Twelve lead electrocardiogram in the chart is shows a sinus mechanism with no acute ST or T-wave abnormalities. He has small nondiagnostic inferior Q-waves on his electrocardiogram Review of Systems Constitutional: Constitutional: Reports no additional constitutional complaints Eyes: Eyes: Reports no additional eye complaints ENT: Reports system reviewed and no additional complaints, except as documented Cardiovascular: Cardiovascular: Reports no additional cardiovascular complaints Respiratory: Respiratory: Reports no additional respiratory complaints Gastrointestinal: Gastrointestinal: Reports as per HPI and Reports abdominal pain Musculoskeletal: Musculoskeletal: Reports no additional musculoskeletal complaints and Reports as per HPI Integumentary/Breasts: Skin/Breast: Reports system reviewed and no additional complaints, except as docu and Reports as per HPI Neurologic: Reports system reviewed and no additional complaints, except as documented Endocrine: Endocrine: Reports no additional endocrine complaints Hematologic/Lymphatic: Hematologic/Lymphatic: Reports no additional hematologic/lymphatic complaints Allergic/Immunologic: Allergic/Immunologic: Reports no additional allergic/immunologic complaints [facility] Past Medical History Medical History (Updated 03/02/20 @ 11:18 by Elizabeth Lyn PA-C) Anxiety Arthritis Benign prostatic hyperplasia with nocturia Dementia, unspecified, without behavioral disturbance Depression Dyslipidemia Erectile dysfunction Essential hypertension GERD without esophagitis History of kidney stones Hypothyroidism Neuropathy Obstructive sleep apnea He does not always use his CPAP. Type 2 diabetes mellitus with diabetic polyneuropathy, without long-term current use of insulin Hemoglobin A1c was 5.5% in September 2019. Surgica
[2020-03-02 18:13] LABS: Glucose Point of Care 130 (65-105)
[2020-03-02] MEDS: ACETAMINOPHEN 325 MG TABLET 650 MG PO (21:55)
[2020-03-02 23:59] LABS: Glucose Point of Care 101 (65-105)
[2020-03-03] VITALS (15 sets, daily range): BP systolic 105–136; BP diastolic 59–83; PULSE 66–133; RESP 14–24; TEMP 36.1–38.1; O2SAT 93–100
[2020-03-03] MEDS: LEVOTHYROXINE SODIUM 25 MCG TABLET PO (05:50)
[2020-03-03] MEDS: CHLORHEXIDINE GLUCONATE 4% SOL 120 ML BTL 1 APPLIC TOPICAL (05:53)
[2020-03-03 06:55] LABS: Glucose Point of Care 133 (65-105)
[2020-03-03 07:01] LABS: Basophils Percent Auto 0.2 % (0.2-1.2); Eosinophils Percent Auto 0.1 % (0-4.4); Hematocrit 40.1 % (42.0-52.0); Hemoglobin 13.5 g/dL (14.0-18.0); Immature Granulocyte Absolute 0.55 K/mm3 (0.00-0.031); Immature Granulocyte Percent A 3.1 % (0-0.5); Lymphocytes Absolute Auto 0.48 K/mm3 (0.9-3.2); Lymphocytes Percent Auto 2.7 % (18.3-44.2); Mean Corpuscular HGB Conc 33.7 g/dl (32-36); Mean Corpuscular Hemoglobin 29.5 pg (26-34); Mean Corpuscular Volume 87.7 fl (80-100); Mean Platelet Volume 10.5 fl (7.4-10.4); Monocytes Absolute Auto 1.1 K/mm3 (0.1-0.6); Neutrophils Absolute Auto 15.9 K/mm3 (1.3-6.7); Neutrophils Percent Auto 87.9 % (45.5-73.1); Platelet Count Result 246 k/mm3 (150-375); Red Blood Count 4.57 M/mm3 (4.6-6.20); Red Cell Distribution Width 13.2 % (11.5-14.5)
--- NOTE | 2020-03-03 07:17 | WPDANESEPPF ---
Anes - Initial Pre Proc Eval Procedure: Operation Date: 03/03/20 09:00 Proposed Procedures p Laparoscopic Cholecystectomy,Possible Intraoperative Cholangiograms - Dennis Galindo MD Date/Time: 03/03/20 07:17 Surgeon: Valerie Fernández NP Pre Op Diagnosis: Acute cholecystitis Patient Data Age: 64 Gender: M Height: 1.78 m Weight: 108.5 kg Last Vital Signs Temp 36.1 C L 03/03/20 05:01 Pulse 66 03/03/20 05:01 Resp 16 03/03/20 05:01 BP 134/67 03/03/20 05:01 Pulse Ox 95 03/03/20 05:01 Allergies Allergy/AdvReac Type Severity Reaction Status Date / Time No Known Allergies Allergy Verified 03/01/20 22:18 Home Medications Medication Instructions Recorded Confirmed Type aripiprazole 5 mg tablet 5 mg PO DAILY 02/19/19 03/01/20 History donepezil 10 mg tablet 10 mg PO DAILY tablet 02/19/19 03/01/20 History multivitamin 1 tablet PO DAILY 02/19/19 03/01/20 History bupropion HCl 150 mg tablet,12 hr 300 mg PO DAILY tablet 09/11/19 03/01/20 History sustained-release amiloride 5 mg-hydrochlorothiazide 1 tablet PO DAILY #90 tablet 09/17/19 03/01/20 Rx 50 mg tablet enalapril maleate 20 mg tablet 20 mg PO DAILY #90 tablet 11/05/19 03/01/20 Rx sildenafil 25 mg tablet 25 mg PO DAILY PRN #30 tablet 12/28/19 03/01/20 Rx levothyroxine 25 mcg PO DAILY 01/04/20 03/01/20 History metformin 850 mg PO DAILY 01/04/20 03/01/20 History omeprazole 20 mg PO DAILY 01/04/20 03/01/20 History aspirin [Adult Aspirin] 81 mg PO DAILY 03/01/20 03/01/20 History venlafaxine [Effexor XR] 150 mg PO DAILY 03/01/20 03/01/20 History Laboratory Tests 03/02/20 03/02/20 03/02/20 12: 17:57 23:51 WBC RBC Hgb Hct MCV MCH MCHC RDW Plt Count MPV Immature Gran % (Auto) Neut % (Auto) Lymph % (Auto) [place] % (Auto) Eos % (Auto) Baso % (Auto) Lymph # (Auto) [place] # (Auto) Eos # (Auto) Baso # (Auto) Abs Immat Gran (auto) Absolute Neuts (auto) Absolute Nucleated RBC Nucleated RBC % Sodium Potassium Chloride Carbon Dioxide Anion Gap BUN Creatinine Estim Creat Clear Calc Estimated GFR Glucose POC Capillary Glucose 106 mg/dl mg/dl 130 mg/dl H mg/dl 101 mg/dl mg/dl (65-105) (65-105) (65-105) Calcium Magnesium Total Bilirubin Direct Bilirubin AST ALT Alkaline Phosphatase Total Protein Albumin Triglycerides Cholesterol LDL Cholesterol Direct HDL Direct Lipase 03/03/20 03/03/20 03/03/20 05:50 05:50 06:34 WBC Pending RBC Pending Hgb Pending Hct Pending MCV Pending MCH Pending MCHC Pending RDW Pending Plt Count Pending MPV Pending Immature Gran % (Auto) Pending Neut % (Auto) Pending Lymph % (Auto) Pending [place] % (Auto) Pending Eos % (Auto) Pending Baso % (Auto) Pending Lymph # (Auto) Pending [place] # (Auto) Pending Eos # (Auto) Pending Baso # (Auto) Pending Abs Immat Gran (auto) Pending Absolute Neuts (auto) Pending Absolute Nucleated RBC Pending Nucleated RBC % Pending Sodium Pending Potassium Pending Chloride Pending Carbon Dioxide Pending Anion Gap Pending BUN Pending Creatinin
[2020-03-03 07:19] LABS: Alanine Aminotransferase 27 U/L (4-50); Albumin Level 3.3 g/dL (3.5-5.1); Alkaline Phosphatase 91 U/L (38-126); Anion Gap 8 mmol/L (8-16); Aspartate Amino Transferase 34 U/L (17-59); Bilirubin,Total 0.9 mg/dL (0.2-1.3); Blood Urea Nitrogen 19 mg/dL (9-20); Calcium 8.3 mg/dL (8.4-10.2); Carbon Dioxide 25 mmol/L (22-30); Chloride 101 mmol/L (98-107); Cholesterol 112 mg/dL (0-200); Estimated CRCL calculation 103 ml/min; Estimated Glomerular Filt Rate > 60; Glucose 123 mg/dL (75-110); HDL Direct 17 mg/dL; Magnesium 2.2 mg/dL (1.6-2.3); Potassium 3.7 mmol/L (3.4-5.0); Sodium 134 mmol/L (137-145); Triglycerides 187 mg/dL (<150)
[2020-03-03 07:33] LABS: LDL Cholesterol Direct < 30 mg/dL; Lipase < 10 U/L (23-300)
--- NOTE | 2020-03-03 07:35 | PC.NURSE ---
Patient to surgery per bed. Report to JOSELIN Quezada. Consent signed and on the chart.
[2020-03-03] MEDS: LACTATED RINGERS 1,000 ML 30 ML IV CONT ×2 (07:45→11:18)
[2020-03-03] MEDS: fentaNYL CITRATE INJ (*CRX) 100 MCG/2 ML VIAL 25 MCG IV PUSH ×3 (08:35→11:40)
--- NOTE | 2020-03-03 08:52 | P.HPUP_ITS ---
History and Physical Update Update Date/Time: 03/03/20 08:52 History and Physical has been reviewed, including an updated exam of the patient. There are changes in the patient's condition. An US did not show any stones, however a HIDA scan revealed no uptake in the GB indicating acute cho lecystitis. Pt has been on antibiotics since entering the hospital. Risks, benefits, and alternatives have been discussed and questions answered. Patient agrees to proceed with procedure. DJ
--- NOTE | 2020-03-03 09:35 | PM.IMPN ---
Progress Note: A&P Assessment and Plan (1) Sepsis: Code(s): A41.9 - Sepsis, unspecified organism Status: Acute Assessment and Plan: RESOLVED. Improved. SIRS criteria met with fever, tachycardia, and leukocytosis in the setting of presumed acute cholecystitis. Lactic acid is normal Blood cultures were obtained - preliminary no growth x 2. received aggressive IV fluid rehydration blood pressures remain on the low side of normal so holding antihypertensives at this time. Continue IV zosyn Monitor hemodynamics and urine output Await final blood cultures (2) Acute cholecystitis: Code(s): K81.0 - Acute cholecystitis Status: Acute Assessment and Plan: CT abd/pelvis demonstrated gallbladder distention with adjacent fat stranding concerning for acute cholecystitis with associated fever, tachycardia and leukocytosis. HIDA scan comfirmed gall bladder dysfxn. LFTs and lipase are normal. General surgery is following and Lap Fatou with Dr. Galindo completed today. Patient is tolerating clear liquids for now. Continue IV zosyn (initiated 03/01/20) Continue IV fluids per surgeon. Morphine IV and oral [place] for pain. labs for morning. (3) ST segment changes on electrocardiogram: Code(s): R94.31 - Abnormal electrocardiogram [ECG] [EKG] Status: Acute Assessment and Plan: EKG ordered for pre-op evaluation shows ST-T change in leads II, III, and aVF compared to EKG 01/04/20. He has several risk factors for CAD including T2DM, HTN, and HLD. no complaints of chest pain at rest or with activity. stress test 5-10 years ago. functional status is moderate (4-7 METs). Manager Registration Dr. Lai cleared patient for surgery. Denies chest pain or SOB this afternoon as well, after Lap Fatou. He should F/U with his [employer] after dsicharge. (4) Type 2 diabetes mellitus with diabetic polyneuropathy, without long-term current use of insulin: Code(s): E11.42 - Type 2 diabetes mellitus with diabetic polyneuropathy Status: Chronic Assessment and Plan: A1c 03/02/20 is 5.3. Blood sugars are well-controlled. Glucose levels today are 133, 134, 106 Continue ACHS glucose monitoring, sliding scale insulin, and hypoglycemia protocol Metformin is on hold, restart in 3-7 days after surgery. (5) Essential hypertension: Code(s): I10 - Essential (primary) hypertension Status: Chronic Assessment and Plan: Blood pressures are reasonable. BPs were 122/77-149/73 prior to surgery today. Amiloride-HCTZ and enalapril are currently held, resume when clinically appropriate Continue to monitor (6) Dyslipidemia: Code(s): E78.5 - Hyperlipidemia, unspecified Status: Acute Assessment and Plan: LFTs are normal. The patient is not currently on a statin. lipid panel completed. Trigs slightly elevated at 187. start low dose statin prior to discharge. (7) Dementia, unspecified, without behavioral disturbance: Code(s): F03.90 - Unspecified dementia without behavioral disturbance Status: Chronic Assessment and Plan: Chronic. Patient is at baseline, A&Ox4. Continue donepezil Dementia not overtly obvious today. remains functional and independent. (8) Abnormal urinalysis: Code(s): R82.90 - Unspecified abnormal findings in urine Status: Acute Assessment and Plan: Urinalysis is suspicious for UTI although he is asymptomatic. He is on empiric zosyn for cholecystitis Urine culture inconclusive. (9) Hypothyroidism (acquired): Code(s): E03.9 - Hypothyroidism, unspecified Status: Acute Assessment and Plan: TSH check in the morning Continue levothyroxine Subjective Date/time seen: 03/03/20 09:35 Initially Cecilio was down in the OR having his lap fatou completed this morning when I went to see him. I returned this afternoon to see the patient after his surgery. H
--- NOTE | 2020-03-03 09:57 | SUR.OPER ---
CULTURE SENT WITH [facility] PCT RECEIVED IN PATHOLOGY BY
[2020-03-03] MEDS: BUPIVACAINE HCL 0.5% PF 30 ML VIAL 20 ML INFILTRATE (10:41)
--- NOTE | 2020-03-03 11:43 | PM.PROC ---
Procedure Note - Detailed Date of procedure: 03/03/20 Pre-op diagnosis: Acute cholecystitis Post-op diagnosis: other ( Acute cholecystitis with cholelithiasis ( stone found in cystic duct)) Procedure performed: Laparoscopic cholecystectomy with intraoperative cholangiogram. Description of procedure: Procedure Details: Patient was seen preoperatively in the holding area and risks, benefits and alternatives confirmed. Patient was taken to the operating room and general anesthesia was induced. A time out was then preformed with the surgery team confirming patient and site of surgery. The abdomen was prepped and draped in the usual sterile fashion. Incision was made just below the umbilicus. Two stay sutures of O- Vicryl were used to elevate the mid-line fascia beneath the umbilicus and a small incision was made under direct vision. The peritoneum was entered. The 12 mm Torres cannula was introduced under direct vision. First under low flow and then under high flow the abdomen was insufflated with carbon dioxide never exceeding a pressure of 14. Two 5 mm trocars were then introduced under direct vision. And a 12 mm trocar was placed under direct vision in the epigastric area to allow me to use a 10 mm instrument due to the significant inflammation of his gallbladder. The following trocars were introduced under direct vision: a 12 mm in the epigastrium and two 5 mm trocars along the right costal margin. Due to the significant inflammation of his gallbladder which was whitish brown and quite thick very distended we went ahead and used a trocar needle to aspirate 15 cc of brownish cloudy bile from the gallbladder and sent this for a Gram stain and C&S. We then suction more of the fluid from the gallbladder that we removed this and grasped the gallbladder at the site where the puncture had been made. Inflammatory adhesions were then taken down off the gallbladder between it and the omentum. The gall bladder was then grasped and the cystic duct and artery were dissected free and clipped with an 5 mm endo-clip steamblaster. A small hole was made in the cystic duct with endoshears and a small black stone was milked out of the cystic duct between that incision and the common duct. Once this was removed I was able to slip a cholagio-cath catheter into the cystic duct. A cholangiogram was obtained revealing free flow into the cystic duct, common bile duct, common hepatic, right and left hepatic ducts with free flow into the duodenum with no filling defects in the intra nor extrahepatic biliary tree and no dilation. The catheter was removed and the cystic duct was clipped with a 5 mm endoclip-steamblaster using two clips. The cystic duct was then transected. The cystic artery was also transected at this point. The gall bladder was removed using electrocautery and then removed using an endobag via the umbilical incision. Upon removal the bag gallbladder with palpated baby did palpated but we could not tell whether stones that are not because the gallbladder wall was so thick and necrotic. Should be mentioned that several abscesses were noticed between the posterior a wall of the gallbladder and the liver bed. I did have to make the fascial incision at the umbilicus larger in order to get the gallbladder out. Therefore, in order to close this back up after carefully inspecting the upper right quadrant and placing a 15 round Neel drain into the gallbladder fossa angling under the right lobe of the liver and into the right colic gutter and bringing it out the most lateral of the 5 mm port sites. I closed the fascia at the umbilicus with 2 interrupted Vicryl sutures 1 was an 0 Vicryl the other 1 was a # 1 Vicryl. After positioning the drain it was sutured into place with the small black dot right at the skin level using a 3 - 0 nylon. Dressings for this at the end of the procedure were a split 2 x 2 and a medium Tegaderm. The trocars were removed visualizing hemostasis. Because the up
[2020-03-03 11:54] LABS: Glucose Point of Care 134 (65-105)
[2020-03-03] MEDS: METOPROLOL TARTRATE INJ 5 MG/5 ML VIAL IV PUSH (12:15)
--- NOTE | 2020-03-03 12:17 | SUR.PHASEI ---
1215 dr vazquez aware of elevated heart rate.ordered metoprolol and given.
--- NOTE | 2020-03-03 13:06 | PC.NURSE ---
Pt returned from surgery per bed. Report received from JOSELIN Pritchett.
[2020-03-03] MEDS: SODIUM CHLORIDE 0.9% IV 1,000 ML 125 ML IV CONT (13:20)
[2020-03-03] MEDS: DONEPEZIL HCL 10 MG TABLET PO (13:21)
[2020-03-03] MEDS: buPROPion HCL XL (24 HR) 150 MG TABCR 300 MG PO (13:21)
[2020-03-03] MEDS: ARIPiprazole 5 MG TABLET PO (13:21)
[2020-03-03] MEDS: VENLAFAXINE HCL XR 75 MG CAP.ER.24H 150 MG PO (13:21)
[2020-03-03] MEDS: HYDROcodone/acetaminophen (*CRX) 5-325 MG TABLET 1 TAB PO ×2 (14:44→21:47)
[2020-03-03 16:42] LABS: Glucose Point of Care 106 (65-105)
[2020-03-03] MEDS: SENNA/DOCUSATE SODIUM TABLET 2 TAB PO (21:47)
[2020-03-03 21:57] LABS: Glucose Point of Care 94 (65-105)
[2020-03-04] MEDS: SODIUM CHLORIDE 0.9% IV 1,000 ML 125 ML IV CONT ×2 (00:04→08:20)
[2020-03-04 02:00] VITALS: BP 102/63; PULSE 65; RESP 20; TEMP 36.6; O2SAT 99
[2020-03-04] MEDS: LEVOTHYROXINE SODIUM 25 MCG TABLET PO (05:34)
[2020-03-04] MEDS: HYDROcodone/acetaminophen (*CRX) 5-325 MG TABLET 1 TAB PO (05:35)
[2020-03-04 06:10] LABS: Hematocrit 35.5 % (42.0-52.0); Hemoglobin 11.8 g/dL (14.0-18.0); Mean Corpuscular HGB Conc 33.2 g/dl (32-36); Mean Corpuscular Hemoglobin 29.2 pg (26-34); Mean Corpuscular Volume 87.9 fl (80-100); Mean Platelet Volume 10.4 fl (7.4-10.4); Platelet Count Result 234 k/mm3 (150-375); Red Blood Count 4.04 M/mm3 (4.6-6.20); Red Cell Distribution Width 13.4 % (11.5-14.5)
[2020-03-04 06:31] LABS: Alanine Aminotransferase 34 U/L (4-50); Albumin Level 2.8 g/dL (3.5-5.1); Alkaline Phosphatase 77 U/L (38-126); Anion Gap 4 mmol/L (8-16); Aspartate Amino Transferase 50 U/L (17-59); Bilirubin,Total 0.7 mg/dL (0.2-1.3); Blood Urea Nitrogen 23 mg/dL (9-20); Carbon Dioxide 27 mmol/L (22-30); Chloride 104 mmol/L (98-107); Estimated CRCL calculation 92 ml/min; Estimated Glomerular Filt Rate > 60; Glucose 79 mg/dL (75-110); Magnesium 2.5 mg/dL (1.6-2.3); Potassium 3.3 mmol/L (3.4-5.0); Sodium 135 mmol/L (137-145)
[2020-03-04 06:47] VITALS: BP 107/62; PULSE 55; RESP 20; TEMP 36.6; O2SAT 99
--- NOTE | 2020-03-04 07:05 | WPDANESPN ---
Anes - Prog Note Post-Op Date/Time: 03/04/20 07:05 Cardiovascular status: normal Respiratory status: normal Airway patency: baseline Mental status: baseline Post-Op hydration status: normal Vital Signs: Last Vital Signs Temp 36.6 C 03/04/20 02:00 Pulse 65 03/04/20 02:00 Resp 20 03/04/20 02:00 BP 102/63 03/04/20 02:00 Pulse Ox 99 03/04/20 02:00 Pain Score (VAS): 0 I/O: Intake & Output 03/03/20 03/03/20 03/04/20 15:59 23:59 07:59 Intake Total 1350 1590 100 Output Total 490 80 380 Balance 860 1510 -280 Laboratory Tests 03/04/20 05:46 03/04/20 05:46 03/03/20 03/03/20 03/03/20 05:50 05:50 05:50 WBC 18.0 H RBC 4.57 L Hgb 13.5 L Hct 40.1 L MCV 87.7 MCH 29.5 MCHC 33.7 RDW 13.2 Plt Count 246 MPV 10.5 H Immature Gran % (Auto) 3.1 H Neut % (Auto) 87.9 H Lymph % (Auto) 2.7 L [place] % (Auto) 6.0 Eos % (Auto) 0.1 Baso % (Auto) 0.2 Lymph # (Auto) 0.48 L [place] # (Auto) 1.1 H Eos # (Auto) 0.0 Baso # (Auto) 0.0 Abs Immat Gran (auto) 0.55 H Absolute Neuts (auto) 15.9 H Absolute Nucleated RBC 0.0 Nucleated RBC % 0.0 Sodium 134 L Potassium 3.7 Chloride 101 Carbon Dioxide 25 Anion Gap 8 BUN 19 Creatinine 0.80 Estim Creat Clear Calc 103 Estimated GFR > 60 Glucose 123 H POC Capillary Glucose Calcium 8.3 L Magnesium 2.2 Total Bilirubin 0.9 Direct Bilirubin 0.0 AST 34 ALT 27 Alkaline Phosphatase 91 Total Protein 6.0 L Albumin 3.3 L Triglycerides 187 H Cholesterol 112 LDL Cholesterol Direct < 30 HDL Direct 17 Lipase < 10 L TSH (Reflex) Blood Type O Positive Antibody Screen Negative 03/03/20 03/03/20 03/03/20 11:52 16:35 21:51 WBC RBC Hgb Hct MCV MCH MCHC RDW Plt Count MPV Immature Gran % (Auto) Neut % (Auto) Lymph % (Auto) [place] % (Auto) Eos % (Auto) Baso % (Auto) Lymph # (Auto) [place] # (Auto) Eos # (Auto) Baso # (Auto) Abs Immat Gran (auto) Absolute Neuts (auto) Absolute Nucleated RBC Nucleated RBC % Sodium Potassium Chloride Carbon Dioxide Anion Gap BUN Creatinine Estim Creat Clear Calc Estimated GFR Glucose POC Capillary Glucose 134 H 106 94 Calcium Magnesium Total Bilirubin Direct Bilirubin AST ALT Alkaline Phosphatase Total Protein Albumin Triglycerides Cholesterol LDL Cholesterol Direct HDL Direct Lipase TSH (Reflex) Blood Type Antibody Screen 03/04/20 03/04/20 03/04/20 05:46 05:46 05:46 WBC 10.0 RBC 4.04 L Hgb 11.8 L Hct 35.5 L MCV 87.9 MCH 29.2 MCHC 33.2 RDW 13.4 Plt Count 234 MPV 10.4 Immature Gran % (Auto) Neut % (Auto) Lymph % (Auto) [place] % (Auto) Eos % (Auto) Baso % (Auto) Lymph # (Auto) [place] # (Auto) Eos # (Auto) Baso # (Auto) Abs Immat Gran (auto) Absolute Neuts (auto) Absolute Nucleated RBC Nucleated RBC % Sodium 135 L Potassium 3.3 L Chloride 104 Carbon Dioxide 27 Anion Gap 4 L BUN 23 H Creatinine 0.90 Estim Creat Clear Calc 92 Estimated GFR > 60 Glucose 79 POC Capillary Glucose Calcium 8.0 L Magnesium 2.5 H Total Bilirubin 0.7 Direct Bilirubin AST 50 ALT 34 Alkaline Phosphatase 77 Total Protein 6.0 L Albumin 2.8 L Triglycerides Cholesterol LDL Cholesterol Direct HDL Direct Lipase TSH (Reflex) Pending Blood Type Antibody Screen Microbiology 03/03/20 09:43 Bile Gram Stain - Final Post-procedural complaints: none Patient Feedback: Patient satisfied with anesthetic care.
[2020-03-04 07:56] LABS: Glucose Point of Care 79 (65-105)
[2020-03-04] MEDS: DONEPEZIL HCL 10 MG TABLET PO (08:21)
[2020-03-04] MEDS: buPROPion HCL XL (24 HR) 150 MG TABCR 300 MG PO (08:21)
[2020-03-04] MEDS: ARIPiprazole 5 MG TABLET PO (08:21)
[2020-03-04] MEDS: VENLAFAXINE HCL XR 75 MG CAP.ER.24H 150 MG PO (08:21)
[2020-03-04] MEDS: ENOXAPARIN 40 MG/0.4 ML SYRINGE SUB-Q (08:21)
--- NOTE | 2020-03-04 09:14 | PM.IMPN ---
Progress Note: A&P Assessment and Plan (1) Sepsis: Code(s): A41.9 - Sepsis, unspecified organism Status: Acute Assessment and Plan: RESOLVED. Improved. SIRS criteria met with fever, tachycardia, and leukocytosis in the setting of presumed acute cholecystitis. Lactic acid is normal Blood cultures were obtained - preliminary no growth x 2. received aggressive IV fluid rehydration done, now on maintenance IVFs. blood pressures remain on the low side of normal so holding antihypertensives at this time. Continue IV zosyn Monitor hemodynamics and urine output WBC much improved today, from 18.9 to 10.0 today, no fevers. (2) Acute cholecystitis: Code(s): K81.0 - Acute cholecystitis Status: Acute Assessment and Plan: CT abd/pelvis demonstrated gallbladder distention with adjacent fat stranding concerning for acute cholecystitis with associated fever, tachycardia and leukocytosis. HIDA scan comfirmed gall bladder dysfxn. LFTs and lipase are normal. General surgery is following and Lap Fatou with Dr. Galindo completed on 03/03. Right sided QUINCY drain patent and in place. His Right sided QUINCY drain is patent, showed watery serosangeous drainage with thin red bloody-output of moderate amount overnight with 30ml and 50ml out. Patient is tolerating clear liquids for now. Continue IV zosyn (initiated 03/01/20) Continue IV fluids per surgeon. Morphine IV and oral [place] for pain. labs for morning. (3) ST segment changes on electrocardiogram: Code(s): R94.31 - Abnormal electrocardiogram [ECG] [EKG] Status: Acute Assessment and Plan: EKG ordered for pre-op evaluation shows ST-T change in leads II, III, and aVF compared to EKG 01/04/20. He has several risk factors for CAD including T2DM, HTN, and HLD. no complaints of chest pain at rest or with activity. stress test 5-10 years ago. functional status is moderate (4-7 METs). [employer] Dr. Lai cleared patient for surgery. Denies chest pain or SOB this afternoon as well, after Lap Fatou. He should F/U with his [employer] after dsicharge. (4) Type 2 diabetes mellitus with diabetic polyneuropathy, without long-term current use of insulin: Code(s): E11.42 - Type 2 diabetes mellitus with diabetic polyneuropathy Status: Chronic Assessment and Plan: A1c 03/02/20 is 5.3. Blood sugars are well-controlled. Glucose levels today are 133, 134, 106, 79 today. Continue ACHS glucose monitoring, sliding scale insulin, and hypoglycemia protocol Metformin is on hold, restart in 3-7 days after surgery or when surgeon approves. (5) Essential hypertension: Code(s): I10 - Essential (primary) hypertension Status: Chronic Assessment and Plan: Blood pressures are reasonable. BPs are 102/63 to 128/59 today. Amiloride-HCTZ and enalapril are currently held, continue to hold until SBPs >140, resume when clinically appropriate Continue to monitor (6) Dyslipidemia: Code(s): E78.5 - Hyperlipidemia, unspecified Status: Acute Assessment and Plan: LFTs are normal. The patient is not currently on a statin. lipid panel completed. Trigs slightly elevated at 187. start low dose statin prior to discharge. (7) Dementia, unspecified, without behavioral disturbance: Code(s): F03.90 - Unspecified dementia without behavioral disturbance Status: Chronic Assessment and Plan: Chronic. Patient is at baseline, A&Ox4. Continue donepezil Dementia not overtly obvious today. remains functional and independent, lives with his of over 30 years, they take care of each other at home. (8) Abnormal urinalysis: Code(s): R82.90 - Unspecified abnormal findings in urine Status: Acute Assessment and Plan: Urinalysis is suspicious for UTI although he is asymptomatic. He is on empiric zosyn for cholecystitis Urine culture inconclusive. no urgency or
[2020-03-04 10:47] VITALS: BP 112/68; PULSE 62; RESP 20; TEMP 36.7; O2SAT 100
[2020-03-04 11:45] LABS: Glucose Point of Care 89 (65-105)
--- NOTE | 2020-03-04 13:04 | PM.PNGS ---
Progress Note: A&P Assessment and Plan (1) Acute cholecystitis: Code(s): K81.0 - Acute cholecystitis Status: Acute Assessment and Plan: Advance diet as tolerated Drain output looks serosanguinous Drain out tomorrow, possibly home tomorrow if medically stable Subjective Subjective Date/Time Seen: 03/04/20 13:04 Tolerating liquids. Pain controlled. No fevers. Exam GI: Inspection: other (QUINCY serosanguinous) GI Palp: Yes Soft to palpation and Yes Tenderness to palpation present (GI) (incisional) Auscultation: normal bowel sounds Objective Data Vital Signs Vital Signs: Vital Signs - 24 hr 03/03/20 13:15 03/03/20 13:30 03/03/20 14:05 Temperature 36.8 C 36.5 C 36.6 C Pulse Rate 90 89 98 Respiratory Rate 18 18 18 Blood Pressure 126/66 118/81 128/59 L Pulse Oximetry 96 98 100 03/03/20 17:00 03/03/20 22:15 03/04/20 02:00 Temperature 36.6 C 36.1 C L 36.6 C Pulse Rate 98 66 65 Respiratory Rate 14 20 20 Blood Pressure 110/66 112/67 102/63 Pulse Oximetry 96 97 99 03/04/20 06:47 03/04/20 10:47 Temperature 36.6 C 36.7 C Pulse Rate 55 L 62 Respiratory Rate 20 20 Blood Pressure 107/62 112/68 Pulse Oximetry 99 100 Intake/Output Intake/Output: Intake & Output 03/01/20 03/02/20 03/03/20 03/04/20 23:59 23:59 23:59 23:59 Intake Total 3120 3940 3240 2150 Output Total 570 1780 Balance 3120 3940 2670 370 Meds/Results Medications: Active Medications Generic Name Dose Route Start Last Admin Trade Name Freq PRN Reason Stop Dose Admin Acetaminophen 650 mg 03/02/20 21:21 03/02/20 21:55 Acetaminophen 325 Mg Tablet PO 650 mg Q6H PRN Administration Mild Pain (1-3) or Fever Hydrocodone Bitart/Acetaminophen 1 tab 03/03/20 13:02 03/04/20 05:35 Hydrocodone/Acetaminophen (*Crx) 5-325 Mg Tablet PO 1 tab Q6H PRN Administration Pain Rated 4-6 Hydrocodone Bitart/Acetaminophen 1 tab 03/03/20 13:02 Hydrocodone/Acetaminophen (*Crx) 7.5-325 Mg Tablet PO Q6H PRN Pain Rated 7-10 Aripiprazole 5 mg 03/02/20 09:00 03/04/20 08:21 Aripiprazole 5 Mg Tablet PO 5 mg DAILY IZZY Administration Bupropion HCl 300 mg 03/02/20 09:00 03/04/20 08:21 Bupropion Hcl Xl (24 Hr) 150 Mg Tabcr PO 300 mg QAM IZZY Administration Dextrose 12.5 gm 03/02/20 00:15 Dextrose 50% 25 Gm/50 Ml Syringe IV PUSH PRN PRN Hypoglycemia Protocol Diphenhydramine HCl 25 mg 03/03/20 13:02 Diphenhydramine Hcl Inj 50 Mg/Ml Vial IV PUSH Q6H PRN Itching Donepezil HCl 10 mg 03/02/20 09:00 03/04/20 08:21 Donepezil Hcl 10 Mg Tablet PO 10 mg DAILY IZZY Administration Enoxaparin Sodium 40 mg 03/04/20 09:00 03/04/20 08:21 Enoxaparin 40 Mg/0.4 Ml Syringe SUB-Q 40 mg DAILY IZZY Administration Glucagon 1 mg 03/02/20 00:15 Glucagon For Inj 1 Mg Vial IM PRN PRN Hypoglycemia Protocol Glucose 15 gm 03/02/20 00:15 Glucose Oral Gel 15 Gm Of Glucse In 37.5 Gm Tube PO PRN PRN Hypoglycemia Protocol Piperacillin/Tazobactam/Dextrose 3.375 gm in 50 mls @ 100 mls/hr 03/01/20 18:00 03/04/20 12:05 Zosyn 3.375 Gm/D5w 50ml Pm IVPB Infused Q6HR IZZY Infusion Dextrose 1,000 mls @ 100 mls/hr 03/02/20 00:15 Dextrose 5% 1,000 Ml IVPB PRN PRN Hypoglycemia Protocol Insulin Aspart 2 - 5 units 03/02/20 08:00 03/04/20 11:32 Insulin Aspart (*Bkc) 100 Units/Ml SUB-Q Not Given TIDWM IZZY Protocol Levothyroxine Sodium 25 mcg 03/02/20 06:30 03/04/20 05:34 Levothyroxine Sodium 25 Mcg Tablet PO 25 mcg DAILY@0630 IZZY Administration Morphine Sulfate 2 mg 03/03/20 13:02 Morphine Sulfate (*Crx) 2 Mg/Ml Inj IV PUSH Q2H PRN Pain Rated 4-6 Morphine Sulfate 4 mg 03/03/20 13:02 Morphine Sulfate (*Crx) 4 Mg/Ml Inj IV PUSH Q6H PRN Pain Rated 7-10 Naloxone HCl 0.1 mg 03/03/20 13:02 Naloxone Hcl 0.4 Mg/Ml Vial IV PUSH Q2M PRN
[2020-03-04 14:00] VITALS: BP 118/70; PULSE 64; RESP 18; TEMP 36.6; O2SAT 100
[2020-03-04] MEDS: ACETAMINOPHEN 325 MG TABLET 650 MG PO (16:30)
[2020-03-04 17:18] LABS: Glucose Point of Care 86 (65-105)
[2020-03-04] MEDS: SENNA/DOCUSATE SODIUM TABLET 2 TAB PO (20:04)
[2020-03-04 20:33] VITALS: BP 123/76; PULSE 73; RESP 16; TEMP 35.9; O2SAT 96
[2020-03-04 23:23] LABS: Glucose Point of Care 82 (65-105)
[2020-03-05 05:19] VITALS: BP 122/68; PULSE 62; RESP 16; TEMP 36.4; O2SAT 93
[2020-03-05] MEDS: LEVOTHYROXINE SODIUM 25 MCG TABLET PO (05:42)
[2020-03-05 05:47] LABS: Hematocrit 34.9 % (42.0-52.0); Hemoglobin 11.7 g/dL (14.0-18.0); Mean Corpuscular HGB Conc 33.5 g/dl (32-36); Mean Corpuscular Hemoglobin 29.2 pg (26-34); Mean Platelet Volume 10.3 fl (7.4-10.4); Platelet Count Result 246 k/mm3 (150-375); Red Blood Count 4.01 M/mm3 (4.6-6.20); Red Cell Distribution Width 13.7 % (11.5-14.5); White Blood Count 8.2 K/mm3 (4.5-10.0)
[2020-03-05 06:02] LABS: Anion Gap 5 mmol/L (8-16); Blood Urea Nitrogen 24 mg/dL (9-20); Carbon Dioxide 29 mmol/L (22-30); Chloride 103 mmol/L (98-107); Estimated CRCL calculation 92 ml/min; Estimated Glomerular Filt Rate > 60; Glucose 87 mg/dL (75-110); Potassium 3.3 mmol/L (3.4-5.0); Sodium 137 mmol/L (137-145)
[2020-03-05 07:35] LABS: Glucose Point of Care 79 (65-105)
[2020-03-05] MEDS: ARIPiprazole 5 MG TABLET PO (08:52)
[2020-03-05] MEDS: buPROPion HCL XL (24 HR) 150 MG TABCR 300 MG PO (08:52)
[2020-03-05] MEDS: POTASSIUM CHLORIDE 20 MEQ TABLET 40 MEQ PO (08:52)
[2020-03-05] MEDS: VENLAFAXINE HCL XR 75 MG CAP.ER.24H 150 MG PO (08:52)
[2020-03-05] MEDS: ENOXAPARIN 40 MG/0.4 ML SYRINGE SUB-Q (08:53)
[2020-03-05] MEDS: DONEPEZIL HCL 10 MG TABLET PO (08:53)
[2020-03-05 12:45] LABS: Glucose Point of Care 93 (65-105)
[2020-03-05 14:00] VITALS: BP 128/70; PULSE 68; RESP 18; TEMP 36.6; O2SAT 95
--- NOTE | 2020-03-05 14:06 | PM.DS ---
DS: Admitting Diagnosis Admitting Diagnosis Admitting Diagnosis: Acute cholecystitis DS: Discharge Diagnosis Discharge Diagnosis (1) Acute cholecystitis: Code(s): K81.0 - Acute cholecystitis Status: Acute Assessment and Plan: Discharge Summary (Date of service 03/05/19): Mr. Cool is a 64 y.o. male with PMH significant for GERD, hypertension, dyslipidemia, hypothyroidism, type 2 diabetes mellitus, depression, anxiety, and memory loss who presented to the emergency department 03/01/20 for the evaluation of epigastric abdominal pain, fever, and chills. CT abd/pelvis demonstrated gallbladder distention with adjacent fat stranding concerning for acute cholecystitis. SIRS criteria were met on admission with fever, tachycardia and leukocytosis. He was treated with IV zosyn and IV fluids and admitted to the hospitalist service with general surgery consultation. HIDA scan confirmed gallbladder dysfunction. LFTs and lipase were normal. He underwent laparoscopic cholecystectomy by Dr. Galindo 03/03/20. A right-sided QUINCY drain was placed and removed 03/05/20 per general surgery. He was doing very well from a post-op standpoint. He was tolerating his diet, passing flatus, ambulating without difficulty, and pain was well-controlled. He was felt stable for discharge. He was discharged in hemodynamically stable condition on the afternoon of 03/05/19. Bile fluid culture demonstrated E. coli which was susceptible to zosyn. He was prescribed augmentin at discharge given potential for QTc prolongation wit his home medications and fluoroquinolones. I called him when susceptibilities were available and advised that he stop augmentin and start cefdinir per susceptibilities. He verbalized understanding. Please see additional diagnoses below for further information. (2) Sepsis: Code(s): A41.9 - Sepsis, unspecified organism Status: Resolved Assessment and Plan: SIRS criteria were met with fever, tachycardia, and leukocytosis in the setting of presumed acute cholecystitis. Lactic acid was normal. He was treated with IV zosyn and IV fluids. Blood cultures were obtained and demonstrated no growth. Fevers subsided and leukocytosis resolved. (3) ST segment changes on electrocardiogram: Code(s): R94.31 - Abnormal electrocardiogram [ECG] [EKG] Status: Acute Assessment and Plan: EKG ordered for pre-op evaluation shows ST-T change in leads II, III, and aVF compared to EKG 01/04/20. He has several risk factors for CAD including T2DM, HTN, and HLD. He had no complaints of chest pain at rest or with activity. Dr. Lai with cardiology was consulted for pre-op risk stratification and felt patient was appropriate to proceed. I recommended that he follow-up with his biomedical electronics technician after discharge for an outpatient stress test and he verbalized understanding. (4) Type 2 diabetes mellitus with diabetic polyneuropathy, without long-term current use of insulin: Code(s): E11.42 - Type 2 diabetes mellitus with diabetic polyneuropathy Status: Chronic Assessment and Plan: A1c 03/02/20 is 5.3. Blood sugars were reasonably controlled and metformin was resumed at discharge. (5) Essential hypertension: Code(s): I10 - Essential (primary) hypertension Status: Chronic Assessment and Plan: Blood pressures were well-controlled without additional antihypertensives. Amiloride-HCTZ was held at discharge and enalapril was continued. He was advised to keep a BP log and follow-up with his PCP at discharge for further management. (6) Dyslipidemia: Code(s): E78.5 - Hyperlipidemia, unspecified Status: Acute Assessment and Plan: LFTs were normal. Rosuvastatin was started at discharge. (7) Dementia, unspecified, without behavioral disturbance: Qualifiers: Dementia type: unspecified type Qualified Code(s): F03.90 - Unspecified dementia without behavioral
--- NOTE | 2020-03-05 14:16 | PM.PNGS ---
Progress Note: A&P Assessment and Plan (1) Acute cholecystitis: Code(s): K81.0 - Acute cholecystitis Status: Acute Assessment and Plan: Removed QUINCY drain today Okay to discharge today Recommend Levaquin 750 mg x 5 days Discharge instructions discussed with patient Follow-up with Dr. Galindo in 1-2 weeks Subjective Subjective Date/Time Seen: 03/05/20 14:16 Feeling better today. Pain controlled and bowels moving. Tolerating a low-fat diet. Exam GI: Inspection: non-distended, incision (Intact with glue) and other (QUINCY drain serosanguineous) GI Palp: Yes Tenderness to palpation present (GI) (Incisional) Objective Data Vital Signs Vital Signs: Vital Signs - 24 hr 03/04/20 20:33 03/05/20 05:19 Temperature 35.9 C L 36.4 C L Pulse Rate 73 62 Respiratory Rate 16 16 Blood Pressure 123/76 122/68 Pulse Oximetry 96 93 Intake/Output Intake/Output: Intake & Output 03/02/20 03/03/20 03/04/20 03/05/20 23:59 23:59 23:59 23:59 Intake Total 3940 3240 3110 980 Output Total 570 2955 830 Balance 3940 2670 155 150 Meds/Results Medications: Active Medications Generic Name Dose Route Start Last Admin Trade Name Freq PRN Reason Stop Dose Admin Acetaminophen 650 mg 03/02/20 21:21 03/04/20 16:30 Acetaminophen 325 Mg Tablet PO 650 mg Q6H PRN Administration Mild Pain (1-3) or Fever Hydrocodone Bitart/Acetaminophen 1 tab 03/03/20 13:02 03/04/20 05:35 Hydrocodone/Acetaminophen (*Crx) 5-325 Mg Tablet PO 1 tab Q6H PRN Administration Pain Rated 4-6 Hydrocodone Bitart/Acetaminophen 1 tab 03/03/20 13:02 Hydrocodone/Acetaminophen (*Crx) 7.5-325 Mg Tablet PO Q6H PRN Pain Rated 7-10 Aripiprazole 5 mg 03/02/20 09:00 03/05/20 08:52 Aripiprazole 5 Mg Tablet PO 5 mg DAILY IZZY Administration Bupropion HCl 300 mg 03/02/20 09:00 03/05/20 08:52 Bupropion Hcl Xl (24 Hr) 150 Mg Tabcr PO 300 mg QAM IZZY Administration Dextrose 12.5 gm 03/02/20 00:15 Dextrose 50% 25 Gm/50 Ml Syringe IV PUSH PRN PRN Hypoglycemia Protocol Diphenhydramine HCl 25 mg 03/03/20 13:02 Diphenhydramine Hcl Inj 50 Mg/Ml Vial IV PUSH Q6H PRN Itching Donepezil HCl 10 mg 03/02/20 09:00 03/05/20 08:53 Donepezil Hcl 10 Mg Tablet PO 10 mg DAILY IZZY Administration Enoxaparin Sodium 40 mg 03/04/20 09:00 03/05/20 08:53 Enoxaparin 40 Mg/0.4 Ml Syringe SUB-Q 40 mg DAILY IZZY Administration Glucagon 1 mg 03/02/20 00:15 Glucagon For Inj 1 Mg Vial IM PRN PRN Hypoglycemia Protocol Glucose 15 gm 03/02/20 00:15 Glucose Oral Gel 15 Gm Of Glucse In 37.5 Gm Tube PO PRN PRN Hypoglycemia Protocol Piperacillin/Tazobactam/Dextrose 3.375 gm in 50 mls @ 100 mls/hr 03/01/20 18:00 03/05/20 14:03 Zosyn 3.375 Gm/D5w 50ml Pm IVPB Not Given Q6HR IZZY Dextrose 1,000 mls @ 100 mls/hr 03/02/20 00:15 Dextrose 5% 1,000 Ml IVPB PRN PRN Hypoglycemia Protocol Insulin Aspart 2 - 5 units 03/02/20 08:00 03/05/20 12:00 Insulin Aspart (*Bkc) 100 Units/Ml SUB-Q Not Given TIDWM [facility] Protocol Levofloxacin 750 mg 03/05/20 14:12 Levofloxacin Tab 750 Mg Tablet PO 03/05/20 14:13 ONCE ONE Levothyroxine Sodium 25 mcg 03/02/20 06:30 03/05/20 05:42 Levothyroxine Sodium 25 Mcg Tablet PO 25 mcg DAILY@0630 [facility] Administration Morphine Sulfate 2 mg 03/03/20 13:02 Morphine Sulfate (*Crx) 2 Mg/Ml Inj IV PUSH Q2H PRN Pain Rated 4-6 Morphine Sulfate 4 mg 03/03/20 13:02 Morphine Sulfate (*Crx) 4 Mg/Ml Inj IV PUSH Q6H PRN Pain Rated 7-10 Naloxone HCl 0.1 mg 03/03/20 13:02 Naloxone Hcl 0.4 Mg/Ml Vial IV PUSH Q2M PRN Opiate Reversal Ondansetron HCl 4 mg 03/01/20 16:51 Ondansetron Inj 4 Mg/2 Ml Vial IV PUSH Q4H PRN Nausea Senna/Docusate Sodium 2 tab 03/03/20 21:00 03/04/20 20:04 Senna/Docusate Sod
== END 2020-03-05 17:07 | disposition home or self-care (01) | DRG 854 ==
LOC: ANHED 12:19 → ANH3MED 17:38
PROVIDERS: Family Medicine; Nurse Practitioner; Nurse Practitioner Family; Physician Assistant; Surgery; Admitting Provider Family Medicine; Emergency Provider Emergency Medicine; PCP Internal Medicine; Visit Provider Physician Assistant
PROC: 0FT44ZZ Resection of Gallbladder, Percutaneous Endoscopic Approach (ICD-10-PCS; CPT 47562; principal; 2020-03-03 09:00)
DX: A41.9 Sepsis, unspecified organism (principal); K80.42 Calculus of bile duct with acute cholecystitis without obstruction; I10 Essential (primary) hypertension; F41.8 Other specified anxiety disorders; E11.9 Type 2 diabetes mellitus without complications; E78.5 Hyperlipidemia, unspecified; G47.33 Obstructive sleep apnea (adult) (pediatric); E66.9 Obesity, unspecified
CPT/HCPCS: 36415; 71045; 74177; 74300; 76705; 78227; 80048; 80053; 80061; 81001; 82248; 83036; 83605; 83690; 83735; 84443; 85025; 85027; 86850; 86900; 86901; 87040; 87070; 87075; 87077; 87086; 87186; 87205; 88104; 88108; 88304; 93005; 96361; 96365; 96375; 99285; A9270; A9537; J0131; J1650; J2270; J2405; J2543; J2704; J2710; J3010; J3475; J7030; J7120; Q9966; Q9967

== ENCOUNTER 2020-03-31 12:32 | Outpatient (CLI) | payer OTHER, SELFPAY ==
--- NOTE | 2020-04-01 10:57 | WPDNEUROLOGY ---
Neurology EEG Report General Information Date of Study: 03/31/20 TEST eeg DIAGNOSIS memory loss CONDITION OF RECORDING awake drowsy and sleep EEG NUMBER 21-31 CLINICAL HISTORY memory loss over the last year or so EEG DESCRIPTION basic resting occipital frequency consists of large amount of well-organized medium voltage 8 to 10 hertz per 2nd alpha admixed with low-voltage 15 to 18 hertz per 2nd beta. During drowsiness low-voltage beta activity seen diffusely admixed with waxing and waning posterior alpha rhythm. Also intermittent 6 to 7 hertz per 2nd theta. Hyperventilation not done. Photic stimulation produced normal drive. Non paroxysmal. Nonfocal. Nonlateralizing. IMPRESSION Normal EEG
== END 2020-03-31 12:33 | disposition home or self-care (01) ==
LOC: ANHNEURO 12:33
PROVIDERS: PCP Internal Medicine; Visit Provider Psychiatry & Neurology Neurology
DX: R41.3 Other amnesia (principal)
CPT/HCPCS: 95816

== ENCOUNTER 2020-05-11 15:29 | Outpatient (CLI) | payer OTHER, MEDICARE, SELFPAY | END 2020-05-11 15:30 | disposition home or self-care (01) | LOC: ANHCOVIDVC 15:29 | PROVIDERS: PCP Internal Medicine | DX: Z23 Encounter for immunization (principal) | CPT/HCPCS: 0001A; 91300 ==

== ENCOUNTER 2020-06-01 15:21 | Outpatient (CLI) | payer OTHER, MEDICARE, SELFPAY | END 2020-06-01 15:22 | disposition home or self-care (01) | LOC: ANHCOVIDVC 15:21 | PROVIDERS: PCP Internal Medicine | DX: Z23 Encounter for immunization (principal) | CPT/HCPCS: 0002A; 91300 ==

== ENCOUNTER 2023-05-14 16:22 | Emergency (ER) | payer OTHER, SELFPAY ==
[2023-05-14] VITALS (15 sets, daily range): BP systolic 133–192; BP diastolic 46–107; PULSE 69–105; RESP 15–28; TEMP 36.6; O2SAT 93–99
--- NOTE | ~2023-05-14 | XR_ITS ---
EXAMINATION: XR chest 2V DATE: 05/14/2023 16:53 INDICATION: Shortness of breath, chest tightness and left-sided chest pain TECHNIQUE: PA and lateral views of the chest were obtained. COMPARISON: Chest radiograph dated 03/01/[address] dated 09/16/2017 FINDINGS: Small bilateral paracardial fat pads at the anterior lung bases. Subtle curvilinear discoid atelectas is at the left lower lung zone unchanged since prior CT. No other airspace opacities, pulmonary edema , pleural effusion or pneumothorax. Heart size is normal. Tortuous thoracic aorta. Moderate thoracic spondylosis with chronic mild anterior wedging of a couple lower thoracic vertebral bodies. IMPRESSION: 1. Chronic mild linear discoid atelectasis/scarring in the lingula. No acute cardiopulmonary disease. Reviewed, dictated and finalized at location L. IMPRESSION: 1. Chronic mild linear discoid atelectasis/scarring in the lingula. No acute ca rdiopulmonary disease.
--- NOTE | 2023-05-14 16:27 | ECG_ITS ---
Measurements Intervals [place] Rate: 95 P: 31 [place]: 196 QRS: -40 QRSD: 117 T: 25 QT: 365 QTc: 459 Interpretive Statements SINUS RHYTHM LEFT AXIS DEVIATION INTRAVENTRICULAR CONDUCTION DELAY PATTERN CONSISTENT WITH PULMONARY DISEASE BORDERLINE T WAVE ABNORMALITY- INFERIOR LEADS BASELINE ARTIFACT- I, II, III, AVR BORDERLINE ECG COMPARED TO ECG 03/02/2020 08:46:44 LEFT-AXIS DEVIATION NOW PRESENT Electronically Signed On 05-14-2023 17:08:26 CDT by Artie Sharma D.O.
[2023-05-14 16:44] LABS: Basophils Absolute Auto 0.1 K/mm3 (0.0-0.1); Basophils Percent Auto 0.8 % (0.2-1.2); Eosinophils Absolute Auto 0.2 K/mm3 (0-0.3); Eosinophils Percent Auto 2.5 % (0-4.4); Hematocrit 50.3 % (42.0-52.0); Hemoglobin 16.8 g/dL (14.0-18.0); Immature Granulocyte Absolute 0.02 K/mm3 (0.00-0.031); Immature Granulocyte Percent A 0.2 % (0-0.5); Lymphocytes Absolute Auto 2.09 K/mm3 (0.9-3.2); Lymphocytes Percent Auto 24.5 % (18.3-44.2); Mean Corpuscular HGB Conc 33.4 g/dl (32-36); Mean Corpuscular Hemoglobin 29.9 pg (26-34); Mean Corpuscular Volume 89.5 fl (80-100); Mean Platelet Volume 10.1 fl (7.4-10.4); Monocytes Absolute Auto 0.6 K/mm3 (0.1-0.6); Monocytes Percent Auto 7.2 % (2.6-8.5); Neutrophils Absolute Auto 5.5 K/mm3 (1.3-6.7); Neutrophils Percent Auto 64.8 % (45.5-73.1); Platelet Count Result 347 k/mm3 (150-375); Red Blood Count 5.62 M/mm3 (4.6-6.20); Red Cell Distribution Width 13.1 % (11.5-14.5); White Blood Count 8.5 K/mm3 (4.5-10.0)
[2023-05-14 16:54] LABS: Alanine Aminotransferase 30 U/L (6-50); Albumin Level 4.6 g/dL (3.5-5.1); Alkaline Phosphatase 98 U/L (38-126); Anion Gap 9 mmol/L (8-16); Aspartate Amino Transferase 44 U/L (17-59); Bilirubin,Total 0.9 mg/dL (0.2-1.3); Blood Urea Nitrogen 14 mg/dL (9-20); Calcium 9.5 mg/dL (8.4-10.2); Carbon Dioxide 26 mmol/L (22-30); Chloride 104 mmol/L (98-107); Estimated CRCL calculation 77 ml/min; Estimated Glomerular Filt Rate > 60; Glucose 116 mg/dL (65-110); Lipase 38 U/L (23-300); Potassium 3.5 mmol/L (3.4-5.0); Sodium 139 mmol/L (137-145)
[2023-05-14 16:57] LABS: INR 1.1; Prothrombin Time 14.3 Seconds (11.1-14.7)
[2023-05-14 16:58] LABS: Partial Thromboplastin Time 31.6 Seconds (22.3-36.8)
[2023-05-14] MEDS: IPRATROPIUM 0.5 MG/ALBUTEROL SULFATE 2.5 MG AMPUL.NEB 3 ML INHALATION (17:01)
--- NOTE | 2023-05-14 17:02 | ED.SOB ---
HPI - SOB/Dyspnea General Chief Complaint: Shortness of Breath/Dyspnea <Maria Dolores Contreras MD - Last Filed: 05/15/23 15:44> Stated Complaint: SOB, elevaged BP <Maria Dolores Contreras MD - Last Filed: 05/15/23 15:44> Time Seen by Provider: 05/14/23 16:39 <Maria Dolores Contreras MD - Last Filed: 05/15/23 15:44> History of Present Illness HPI Narrative: Patient here with shortness of breath that started last night, and some chest tightness/left shoulder tightness. He does have a history of rotator cuff issues with the left shoulder and is unsure if that could be what is going on but this feels slightly different. No recent cough or URI. Remote history of smoking. <Maria Dolores Contreras MD - Last Filed: 05/15/23 15:44> Related Data Home Medications: Home Medications Medication Instructions Recorded Confirmed aripiprazole 5 mg tablet (Abilify) 5 mg PO DAILY 02/19/19 11/29/21 multivitamin 1 tablet PO DAILY 02/19/19 11/29/21 bupropion HCl 150 mg tablet,12 hr 300 mg PO DAILY 09/11/19 11/29/21 sustained-release albuterol sulfate 90 mcg/actuation g inhalation 07/10/21 11/29/21 aerosol inhaler duloxetine 60 mg capsule,delayed 60 mg PO DAILY 11/29/21 11/29/21 release (Cymbalta) <Maria Dolores Contreras MD - Last Filed: 05/15/23 15:44> Allergies/Adverse Reactions: Allergies Allergy/AdvReac Type Severity Reaction Status Date / Time No Known Allergies Allergy Verified 05/14/23 16:31 <Maria Dolores Contreras MD - Last Filed: 05/15/23 15:44> Review of Systems Review of Systems: CONST: No fever. HEENT: No sore throat C/V: Slight left-sided chest tightness RESP: Some shortness of breath GI: No abdominal pain, nausea or vomiting : No dysuria. M/S: Left shoulder discomfort SKIN: No rash. NEURO: No focal numbness or PSYCH: [No depression] <Maria Dolores Contreras MD - Last Filed: 05/15/23 15:44> [facility] Past Medical History Medical History: Medical History Anxiety Arthritis Benign prostatic hyperplasia with nocturia Dementia, unspecified, without behavioral disturbance Depression Dyslipidemia Erectile dysfunction Essential hypertension GERD without esophagitis History of kidney stones Hypothyroidism Neuropathy Obstructive sleep apnea He does not always use his CPAP. Type 2 diabetes mellitus with diabetic polyneuropathy, without long-term current use of insulin Hemoglobin A1c was 5.5% in September 2019. <Maria Dolores Contreras MD - Last Filed: 05/15/23 15:44> Surgical History Surgical History: Surgical History History of cystoscopy (~01/08/20) Cystoscopy with right ESWL. Hx of cholecystectomy <Maria Dolores Contreras MD - Last Filed: 05/15/23 15:44> Family History Family History: Family History Father Heart disease Gallbladder disease <Maria Dolores Contreras MD - Last Filed: 05/15/23 15:44> Social History Social History: Social History Social History: the patient lives in [place] with his . He smoked 2 packs of cigarettes a day for 40 years and quit about 5 years ago. He now vapes. He denies alcohol and illicit substance abuse. He designates Lyly as his surrogate decision maker and he wishes to be a full code. Smoking packs per day: 2 Smoking cigarettes per day: 40.0 Years smoked: 20 Smoking pack-years: 40.00 Smoking status: Former smoker Tobacco type: cigarettes and e-cigarettes/vaping Second hand tobacco smoke exposure: Yes Smoking end date: 03/04/04 Additional smoking assessment comments: QUIT CIGARETTES- 5 YEARS AGO. CURRENT VAPOR CIGARETTE X5 YEARS Alcohol intake: former Substance use: never Substance use type: does not use Lack of Transportation: No Lack of Food: Never True Current Housing: I Have Housing Concerned About Future Housing: No Difficulty Paying Gas
[2023-05-14 17:06] LABS: Troponin I < 0.012 ng/mL (0.000-0.034)
--- NOTE | 2023-05-14 19:17 | ECG_ITS ---
Measurements Intervals [place] Rate: 84 P: 30 [place]: 191 QRS: -30 QRSD: 120 T: 30 QT: 400 QTc: 473 Interpretive Statements SINUS RHYTHM LEFT AXIS DEVIATION INTRAVENTRICULAR CONDUCTION DELAY PATTERN CONSISTENT WITH PULMONARY DISEASE BASELINE ARTIFACT- II, III, AVR, AVL, AVF BORDERLINE ECG COMPARED TO ECG 05/14/2023 16:37:12 NO SIGNIFICANT CHANGES Electronically Signed On 05-14-2023 20:25:35 CDT by Artie Sharma D.O.
[2023-05-14 19:50] LABS: Troponin I < 0.012 ng/mL (0.000-0.034)
== END 2023-05-14 20:22 | disposition home or self-care (01) ==
PROVIDERS: Emergency Medicine; Emergency Provider Emergency Medicine
DX: F03.90 Unspecified dementia, unspecified severity, without behavioral disturbance, psychotic disturbance, mood disturbance, and anxiety (principal); I10 Essential (primary) hypertension; E78.5 Hyperlipidemia, unspecified; E03.9 Hypothyroidism, unspecified; E11.42 Type 2 diabetes mellitus with diabetic polyneuropathy; N40.1 Benign prostatic hyperplasia with lower urinary tract symptoms; R35.1 Nocturia; G47.33 Obstructive sleep apnea (adult) (pediatric); K21.9 Gastro-esophageal reflux disease without esophagitis; F41.9 Anxiety disorder, unspecified; F32.A Depression, unspecified; Z87.442 Personal history of urinary calculi; Z87.891 Personal history of nicotine dependence
CPT/HCPCS: 36415; 71046; 80053; 83690; 84484; 85025; 85610; 85730; 93005; 94640; 99284